=== PATIENT | female | born 1970 | race Caucasian/White ===

== ENCOUNTER 2020-09-23 16:22 | Inpatient (IN) | payer BC, SELFPAY ==
--- NOTE | ~2020-09-23 | CT_ITS ---
EXAMINATION: CT ABDOMEN AND PELVIS WITH CONTRAST CLINICAL INFORMATION: Right upper quadrant abdominal pain COMPARISON: None TECHNIQUE: Multidetector volumetric images were obtained from the superior aspect of the liver through the pubic symphysis following administration 85 mL of Omnipaque 350 intravenous contrast. Sagittal and coronal reformatted images were obtained on the technologist's workstation. Oral contrast: No This CT examination was performed using dose optimization techniques as appropriate, variously including the following: *Automated exposure control *Adjustment of mA and/or kV according to patient size (this includes techniques or standardized protocols for targeted exams where dose is matched to indication/reason for exam; i.e. extremities or head) *Use of iterative reconstruction technique DLP: 1046 mGy-cm FINDINGS: LUNG BASES: The visualized lung bases are unremarkable. LIVER, GALLBLADDER, AND BILIARY TREE: There is triangular low density consistent with focal fatty infiltration adjacent the fissure of the falciform ligament. No focal hepatic lesion or biliary ductal dilatation is present. The gallbladder is unremarkable with no evidence of radiopaque gallstones, gallbladder wall thickening, or obvious pericholecystic inflammatory changes. PANCREAS: Unremarkable. SPLEEN: Unremarkable. ADRENAL GLANDS: Unremarkable. KIDNEYS AND URETERS: The kidneys are normal in size, shape, and attenuation. No hydronephrosis, hydroureter, or calculi seen. No perinephric stranding. BLADDER: Unremarkable. GASTROINTESTINAL TRACT: The stomach and small bowel are nondilated. Normal appendix. There is moderate to severe segmental wall thickening of the transverse colon from the hepatic flexure to the splenic flexure. The left colon and sigmoid colon are collapsed with wall thickening commensurate with the degree of distention. ABDOMINAL WALL: No significant hernia is appreciated. LYMPH NODES: Normal. VASCULAR: Unremarkable. PELVIC VISCERA: Unremarkable. OSSEOUS STRUCTURES: Unremarkable. CT/CT abdomen pelvis w con IMPRESSION: Moderate to severe segmental wall thickening of the and entire transverse colon, from the hepatic flexure to the splenic flexure. The left colon and sigmoid colon are collapsed with wall thickening that is most likely attributable to underdistention. The appearance is consistent with a nonspecific colitis, presumably infectious or inflammatory. This would be an unusual location for ischemic colitis.
[2020-09-23 16:41] VITALS: BP 142/76; PULSE 90; RESP 16; TEMP 36.1; O2SAT 98; BMI 39.4
[2020-09-23 19:23] LABS: MANUAL DIFF FLAG NO
[2020-09-23 19:25] LABS: Basophils Absolute Auto 0.1 X10*3/uL (0.0-0.2); Basophils Percent Auto 0.6 % (0-2); Eosinophils Absolute Auto 0.2 X10*3/uL (0.0-0.4); Hematocrit 40.9 % (37-47); Hemoglobin 13.4 g/dl (12.0-16.0); Imm Gran Abs Auto 0.04 X10*3/uL (0.00-0.03); Imm Gran Pct Auto 0.5 % (0.0-0.4); Lymphocytes Absolute Auto 1.9 X10*3/uL (1.2-4.9); Lymphocytes Percent Auto 21.2 % (20-40); Mean Corpuscular HGB Conc 32.8 g/dl (31.0-35.0); Mean Corpuscular Hemoglobin 30.1 pg (27.0-33.0); Mean Corpuscular Volume 91.9 fL (80-98); Mean Platelet Volume 9.7 fL (9.4-12.3); Monocytes Absolute Auto 0.7 X10*3/uL (0.1-1.2); Monocytes Percent Auto 7.5 % (2-11); Neutrophils Percent Auto 68.2 % (45-73); Platelet Count 266 X10*3/uL (160-400); Red Blood Count 4.45 X10*6/uL (4.20-5.50); Red Cell Distribution Width 12.3 % (11.0-16.0); White Blood Count 8.8 X10*3/uL (4.8-10.8)
[2020-09-23 19:50] LABS: Alanine Aminotransferase 28 U/L (0-31); Alkaline Phosphatase 91 U/L (39-117); Anion Gap 14 (12-20); Aspartate Amino Transferase 16 U/L (5-31); Bilirubin Direct < 0.2 mg/dL (0.0-0.5); Bilirubin Total 0.4 mg/dL (0.0-1.0); Blood Urea Nitrogen 8 mg/dL (9-16); Calcium 9.1 mg/dL (8.4-10.2); Carbon Dioxide 25 mmol/L (22-29); Chloride 104 mmol/L (96-108); Creatinine Clr Calc Pharmacy 110.4; Estimated Glomerular Filt Rate > 60; Glucose Random 143 mg/dL (60-115); Lipase 28 U/L (8-78); Potassium 3.8 mmol/L (3.3-5.1); Sodium 139 mmol/L (135-145); Total Protein 7.1 g/dL (6.5-8.0)
[2020-09-23 21:25] LABS: Glucose Urine UA NEG (NEG); Leukocyte Esterase Urine NEG (NEG); Nitrite Urine NEG (NEG); Specific Gravity - Urine <= 1.005 (1.005-1.025); Urine Blood NEG (NEG); Urine Ketones NEG (NEG); Urine Protein NEG (NEG-TRACE)
--- NOTE | 2020-09-23 21:25 | PC.NURSE ---
Patient vomited while in CAT Scan and patient may have aspirated on his own vomit. Patient sounds very wet. Respiratory called to come evaluate the patient and his breathing. Abdomen more distended and MD made aware of developing. All providers made aware that patient's respirations were around 30-40's. No beds available in [facility]
[2020-09-23 21:26] LABS: UPreg QC Valid YES; Urine Pregnancy NEGATIVE (NEGATIVE)
[2020-09-23 21:27] LABS: Appearance Urine CLEAR; Color Urine YELLOW
--- NOTE | 2020-09-23 21:30 | ED.ABDPAIN ---
HPI - Abdominal Pain General Chief Complaint: Abdominal Pain Stated Complaint: Abdominal pain Time Seen by Provider: 09/23/20 21:26 Source: patient Mode of arrival: ambulatory Limitations: no limitations History of Present Illness HPI narrative: 50-year-old female with past medical history of HELLP syndrome, uterine fibroids, hysterectomy with salpingectomy, uterine fibroids and obesity presents with 10/10 right upper quadrant epigastric and left upper quadrant abdominal pain. States that this pain woke her up at 4:00 a.m. this morning. This pain is also associated with multiple episodes of diarrhea which she has been taking Pepto-Bismol for with poor effect. She did present to [facility] today and was in the waiting room for 6 hours, left to be evaluated here because the wait was too long. She does report a significant family history for colon cancer. She does not report any fevers or chills, chest pain or pressure, palpitations, shortness of breath, abdominal distention, inability of passed flatulence, edema, or any other concerning symptoms. MD elicited complaint: abdominal pain Pertinent past history: none Onset (ago): day(s) Pain Consistency: constant Location: epigastric, LUQ and RUQ Severity: severe Pain scale (0-10): 9 Quality: cramping and aching Exacerbating factors: eating, bowel movement and movement Relieving factors: nothing Associated symptoms: diarrhea and melena Treatments prior to arrival: other (Pepto-Bismol) Related Data Allergies Allergy/AdvReac Type Severity Reaction Status Date / Time No Known Allergies Allergy Verified 09/23/20 21:26 Review of Systems Review of Systems Constitutional: No Weight loss, No Fever, No Chills, No Night Sweats, No Fatigue, No Malaise ENT/Mouth: No Hearing loss, No Ear Pain, No Nasal Congestion, No Sinus Pain, No Hoarseness, No sore throat, No Rhinorrhea, No Swallowing Difficulty Eyes: No Eye Pain, No Swelling, No Redness, No Foreign Body, No Discharge, No Vision Changes Cardiovascular: No Chest Pain, No SOB, No Dyspnea on Exertion, No Orthopnea, No Edema, No Palpitations Respiratory: No Cough, No Sputum, No Wheezing, No Smoke Exposure, No Dyspnea Gastrointestinal: Positive Nausea, Positive Vomiting, positive Diarrhea, positive abdominal Pain, No Hematochezia, No Melena Genitourinary: no irregular bleeding, No Dysuria, No Urinary Frequency, No Hematuria, No Urinary Incontinence, No Urgency, No Flank Pain, No Urinary Flow Changes, No Hesitancy Musculoskeletal: No joint pain, No Myalgias, No Joint Swelling Skin: No Skin Lesions, No rash Neuro: No Weakness, No Numbness, No Paresthesias, No Loss of Consciousness, No Dizziness, No Headache Psych: No Anxiety/Panic, No Depression, No SI/HI/AH/VH, No Social Issues Heme/Lymph: No Bruising, No Bleeding,No Lymphadenopathy Endocrine: No Polyuria, No Polydipsia, No Temperature Intolerance Physical Exam Vital Signs: Vital Signs: Last Vital Signs Temp 97 F 09/23/20 16:41 Pulse 80 09/24/20 00:17 Resp 15 09/24/20 00:17 BP 118/75 09/24/20 00:17 Pulse Ox 97 09/24/20 00:17 Body Mass Index 39.4 Appearance: Alert. Oriented X3. Moderate distress. Head: Normal external exam. Normocephalic. Atraumatic. No Chavarria signs noted. No raccoon eyes noted Eyes: PERRLA. EOMI. Conjunctiva and sclera normal. Eyelids normal. ENT: TM's Normal. Pharynx normal. Uvula midline. Moist mucous membranes. No trismus noted. No drooling noted. No muffled voice noted. Neck: Normal inspection. Neck supple. No adenopathy. Thyroid Normal. No meningeal signs. No neck mass noted. CVS: Normal heart rate and rhythm. Heart sound normal. No murmurs noted. Pulses equal to all extremities. Respiratory: No respiratory distress. Painless inspiration. Breath sounds normal. No wheezes/rales/rhonchi noted. Chest nontender. No accessory muscle usage noted or decreased air movement noted. Abdomen: Soft, obese and diffusely tender throughout right upper epigastric and left upper quadrant, positive Garcia, negative psoas obturator and Rovsing. Bowel sounds normal in all 4 quadrants. No distention noted. No organomegaly noted. No visible injury noted. Genitourinary: Normal rectal tone, black stools noted on guaiac card Back: No CVA tenderness. Full range of motion noted. Skin: Skin warm and dry. Normal skin color. Normal skin turgor. No rashes/lesions/lacerations noted. Extremities: No lower extremity edema. Extremities exhibit normal range of motion. Extremities nontender. Neuro: cranial nerves 2-12 intact, no focal neural deficits, strength 5/5 to all extremities, No motor deficit. No sensory deficit. Course Course Course Narrative: 50-year-old female with past medical history of HELLP syndrome, obesity, uterine fibroids, hysterectomy with salpingectomy, significant family history for colon cancer presents with 10/10 abdominal pain that awoke her this morning at 4:00 a.m.. She has had several days of diarrhea prior to this severe pain. Plan of care is for CT scan of abdomen and pelvis with contrast. CBC Chem 7 unremarkable, urinalysis is negative, occult stool is negative. 1:[address] scan positive for moderate to severe colitis throughout the transverse colon. There is no indication of ischemia, discussion with hospitalist regarding plan of care. Plan is to admit, patient verbalized understanding of and agrees to plan. Has been NPO since 9:00 p.m.. Will order lactic, cultures, COVID swab and antibiotics. Patient is not septic. Consultations Consultation #1: evelin Time: 01:00 MDM - Abdominal Pain Differential Diagnosis Differential diagnosis: Likely abdominal pain, aortic dissection, acute appendicitis, calculus of kidney, diverticulitis, gastroenteritis, gastritis, mesenteric ischemia, ovarian cyst, pancreatitis and peptic ulcer disease Differential diagnosis narrative:: Colitis, cholecystitis Medical Records Attestation: I reviewed the patient's medical records. Lab Data Attestation: I reviewed the patient's lab results. Result diagrams: 09/23/20 19:12 09/23/20 19:12 Labs: Lab Results 09/23/20 09/23/20 09/23/20 Range/Units 19:12 19:12 20:51 WBC 8.8 (4.8-10.8) X10*3/uL RBC 4.45 (4.20-5.50) X10*6/uL Hgb 13.4 (12.0-16.0) g/dl Hct 40.9 (37-47) % MCV 91.9 (80-98) fL MCH 30.1 (27.0-33.0) pg MCHC 32.8 (31.0-35.0) g/dl RDW 12.3 (11.0-16.0) % Plt Count 266 (160-400) X10*3/uL MPV 9.7 (9.4-12.3) fL Immature Gran % (Auto) 0.5 H (0.0-0.4) % Neut % (Auto) 68.2 (45-73) % Lymph % (Auto) 21.2 (20-40) % [place] % (Auto) 7.5 (2-11) % Eos % (Auto) 2.0 (0-4) % Baso % (Auto) 0.6 (0-2) % Lymph # (Auto) 1.9 (1.2-4.9) X10*3/uL [place] # (Auto) 0.7 (0.1-1.2) X10*3/uL Eos # (Auto) 0.2 (0.0-0.4) X10*3/uL Baso # (Auto) 0.1 (0.0-0.2) X10*3/uL Abs Immat Gran (auto) 0.04 H (0.00-0.03) X10*3/uL Absolute Neuts (auto) 6.0 (2.0-8.3) X10*3/uL Absolute Nucleated RBC 0.000 (0.0-0.012) X10*3/uL Nucleated RBC % (auto) 0.0 (0.0-0.2) /100WBC Sodium 139 (135-145) mmol/L Potassium 3.8 (3.3-5.1) mmol/L Chloride 104 (96-108) mmol/L Carbon Dioxide 25 (22-29) mmol/L Anion Gap 14 (12-20) BUN 8 L (9-16) mg/dL Creatinine 0.83 (0.5-1.4) mg/dL Estim Creat Clear Calc 110.4 Estimated GFR > 60 Random Glucose 143 H (60-115) mg/dL Calcium 9.1 (8.4-10.2) mg/dL Total Bilirubin 0.4 (0.0-1.0) mg/dL Direct Bilirubin < 0.2 (0.0-0.5) mg/dL AST 16 (5-31) U/L ALT 28 (0-31) U/L Alkaline Phosphatase 91 (39-117) U/L Total Protein 7.1 (6.5-8.0) g/dL Albumin 4.0 (3.5-5.0) g/dL Lipase 28 (8-78) U/L Urine Color YELLOW Urine Appearance CLEAR Urine pH 7.0 (5.0-8.0) Ur Specific [place] <= 1.005 (1.005-1.025) Urine Protein NEG (NEG-TRACE) MG/DL Urine Glucose (UA) NEG (NEG) MG/DL Urine Ketones NEG (NEG) MG/DL Urine Blood NEG (NEG) Urine Nitrite NEG (NEG) Ur Leukocyte Esterase NEG (NEG) Urine Test (NEGATIVE) Stool Occult Blood (NEGATIVE) 09/23/20 09/23/20 Range/Units 20:51 21:48 WBC (4.8-10.8) X10*3/uL RBC (4.20-5.50) X10*6/uL Hgb (12.0-16.0) g/dl Hct (37-47) % MCV (80-98) fL MCH (27.0-33.0) pg MCHC (31.0-35.0) g/dl RDW (11.0-16.0) % Plt Count (160-400) X10*3/uL MPV (9.4-12.3) fL Immature Gran % (Auto) (0.0-0.4) % Neut % (Auto) (45-73) % Lymph % (Auto) (20-40) % [place] % (Auto) (2-11) % Eos % (Auto) (0-4) % Baso % (Auto) (0-2) % Lymph # (Auto) (1.2-4.9) X10*3/uL [place] # (Auto) (0.1-1.2) X10*3/uL Eos # (Auto) (0.0-0.4) X10*3/uL Baso # (Auto) (0.0-0.2) X10*3/uL Abs Immat Gran (auto) (0.00-0.03) X10*3/uL Absolute Neuts (auto) (2.0-8.3) X10*3/uL Absolute Nucleated RBC (0.0-0.012) X10*3/uL Nucleated RBC % (auto) (0.0-0.2) /100WBC Sodium (135-145) mmol/L Potassium (3.3-5.1) mmol/L Chloride (96-108) mmol/L Carbon Dioxide (22-29) mmol/L Anion Gap (12-20) BUN (9-16) mg/dL Creatinine (0.5-1.4) mg/dL Estim Creat Clear Calc Estimated GFR Random Glucose (60-115) mg/dL Calcium (8.4-10.2) mg/dL Total Bilirubin (0.0-1.0) mg/dL Direct Bilirubin (0.0-0.5) mg/dL AST (5-31) U/L ALT (0-31) U/L Alkaline Phosphatase (39-117) U/L Total Protein (6.5-8.0) g/dL Albumin (3.5-5.0) g/dL Lipase (8-78) U/L Urine Color Urine Appearance Urine pH (5.0-8.0) Ur Specific [place] (1.005-1.025) Urine Protein (NEG-TRACE) MG/DL Urine Glucose (UA) (NEG) MG/DL Urine Ketones (NEG) MG/DL Urine Blood (NEG) Urine Nitrite (NEG) Ur Leukocyte Esterase (NEG) Urine Test NEGATIVE (NEGATIVE) Stool Occult Blood NEGATIVE (NEGATIVE) Imaging Data CT scan abdomen pelvis: Attestation: I personally reviewed and interpreted this imaging study as follows: Radiologist's impression: EXAMINATION: CT ABDOMEN AND PELVIS WITH CONTRAST CLINICAL INFORMATION: Right upper quadrant abdominal pain COMPARISON: None TECHNIQUE: Multidetector volumetric images were obtained from the superior aspect of the liver through the pubic symphysis following administration 85 mL of Omnipaque 350 intravenous contrast. Sagittal and coronal reformatted images were obtained on the technologist's workstation. Oral contrast: No This CT examination was performed using dose optimization techniques as appropriate, variously including the following: *Automated exposure control *Adjustment of mA and/or kV according to patient size (this includes techniques or standardized protocols for targeted exams where dose is matched to indication/reason for exam; i.e. extremities or head) *Use of iterative reconstruction technique DLP: 1046 mGy-cm FINDINGS: LUNG BASES: The visualized lung bases are unremarkable. LIVER, GALLBLADDER, AND BILIARY TREE: There is triangular low density consistent with focal fatty infiltration adjacent the fissure of the falciform ligament. No focal hepatic lesion or biliary ductal dilatation is present. The gallbladder is unremarkable with no evidence of radiopaque gallstones, gallbladder wall thickening, or obvious pericholecystic inflammatory changes. PANCREAS: Unremarkable. SPLEEN: Unremarkable. ADRENAL GLANDS: Unremarkable. KIDNEYS AND URETERS: The kidneys are normal in size, shape, and attenuation. No hydronephrosis, hydroureter, or calculi seen. No perinephric stranding. BLADDER: Unremarkable. GASTROINTESTINAL TRACT: The stomach and small bowel are nondilated. Normal appendix. There is moderate to severe segmental wall thickening of the transverse colon from the hepatic flexure to the splenic flexure. The left colon and sigmoid colon are collapsed with wall thickening commensurate with the degree of distention. ABDOMINAL WALL: No significant hernia is appreciated. LYMPH NODES: Normal. VASCULAR: Unremarkable. PELVIC VISCERA: Unremarkable. OSSEOUS STRUCTURES: Unremarkable. CT/CT abdomen pelvis w con IMPRESSION: Moderate to severe segmental wall thickening of the and entire transverse colon, from the hepatic flexure to the splenic flexure. The left colon and sigmoid colon are collapsed with wall thickening that is most likely attributable to underdistention. The appearance is consistent with a nonspecific colitis, presumably infectious or inflammatory. This would be an unusual location for ischemic colitis. Critical Care Time Critical Care Time Critical Care Time: Yes Total Critical Care Time: 45 Attestation: I have personally provided critical care time exclusive of time spent on separately billable procedures. Time includes review of laboratory data, radiology results, discussion with consultants, and monitoring for potential decompensation. Interventions were performed as documented. Discharge Plan Discharge Clinical Impression: Colitis Patient Disposition: Admitted As Inpatient [facility] Social History Social History Smoking Status: Never smoker Use of substances other than those prescribed or required for medical reasons: No Advance Directives: No Advance Directives Information Provided: Yes
[2020-09-23 21:52] LABS: OBS Int Ctl Valid YES; OBS1 NEGATIVE (NEGATIVE)
[2020-09-23 22:00] VITALS: BP 129/78; PULSE 82; RESP 15; O2SAT 97
[2020-09-24] VITALS (9 sets, daily range): BP systolic 114–138; BP diastolic 62–79; PULSE 60–80; RESP 15–20; TEMP 36.4–36.7; O2SAT 93–98
--- NOTE | 2020-09-24 01:24 | PM.IMHP ---
History of Present Illness Date of Service: 09/24/20 Chief Complaint: Abdominal pain 50-year-old female with no significant past medical history presented to the hospital with a chief complaint of abdominal pain. Patient reports that symptoms started on last Wednesday initially had diarrhea, yesterday had regular bowel movement, denies any blood in the stool, abdominal pain is located diffusely but more on the right side, crampy in nature, 10/10 in intensity, denies any nausea vomiting. Denies any chest pain. Denies any numbness tingling. Denies any fever chills cough. Denies any diarrhea. 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 Denies eating frozen food a. ER course: For ER team patient noted to have diffuse abdominal tenderness; no guarding no rigidity. CT scan showed colitis. Admitted to the hospital for further management. Patient was given ceftriaxone and Flagyl in the ER. PMFSH Social History Smoking Status: Never smoker Use of substances other than those prescribed or required for medical reasons: No Advance Directives: No Advance Directives Information Provided: Yes Meds Allergies Allergy/AdvReac Type Severity Reaction Status Date / Time No Known Allergies Allergy Verified 09/23/20 21:26 Active Medications: Current Medications Generic Name Dose Route Start Last Admin Trade Name Freq PRN Reason Stop Dose Admin Heparin Sodium (Porcine) 5,000 unit 09/24/20 01:30 Heparin Sodium,Porcine 5,000 Unit/Ml Vial SUBCUT Q12H JONY Sodium Chloride 1,000 mls @ 999 mls/hr 09/24/20 01:15 Ns IVCONT 09/24/20 02:15 .Q1H1M JONY Ceftriaxone Sodium 1 gm/ 50 mls @ 100 mls/hr 09/24/20 01:05 Sodium Chloride IV 09/24/20 01:34 ONCE ONE Metronidazole 500 mg in 100 mls @ 100 mls/hr 09/24/20 01:05 Flagyl IV 09/24/20 02:04 ONCE ONE Dextrose/Sodium Chloride 1,000 mls @ 100 mls/hr 09/24/20 01:30 D51/2ns IVCONT .Q10H JONY Ceftriaxone Sodium 1 gm/ 50 mls @ 100 mls/hr 09/24/20 01:30 Sodium Chloride IV Q24H JONY Metronidazole 500 mg in 100 mls @ 100 mls/hr 09/24/20 01:30 Flagyl IV Q8H JONY Morphine Sulfate 1 mg 09/24/20 01:16 Morphine Sulfate 4 Mg/Ml Cartridge IVPUSH Q4H PRN Pain, Severe (Pain Scale 7-10) Pharmacy Consult 1 each 09/24/20 01:13 Consult Rx Perform Med Rec MISCELLANE ONCE PRN Consult order Sodium Chloride 3 ml 09/24/20 08:00 0.9 % Sodium Chloride Flush 3 Ml Syringe IVFLUSH QSHIFT [facility] Physical Exam Vital Signs and Narrative: Vital Signs: Last Vital Signs Temp 97 F 09/23/20 16:41 Pulse 80 09/24/20 00:17 Resp 15 09/24/20 00:17 BP 118/75 09/24/20 00:17 Pulse Ox 97 09/24/20 00:17 Body Mass Index 39.4 Gen: Appears be in no acute distress HEENT: NCAT, Moist mucosa. Pulmonary: Vesicular breath sounds, fair air entry CVS: Normal S1-S2 Abdomen: BS+, Soft, tender diffusely. No guarding no rigidity. Extremities: Warm well perfused Neuro: Alert and awake. Results Labs CBC and Chem 7: 09/23/20 19:12 09/23/20 19:12 Labs: Laboratory Results - last 24 hr 09/23/20 09/23/20 09/23/20 19:12 19:12 20:51 MCV 91.9 MCH 30.1 MCHC 32.8 RDW 12.3 Plt Count 266 MPV 9.7 Immature Gran % (Auto) 0.5 H Neut % (Auto) 68.2 Lymph % (Auto) 21.2 [place] % (Auto) 7.5 Eos % (Auto) 2.0 Baso % (Auto) 0.6 Lymph # (Auto) 1.9 [place] # (Auto) 0.7 Eos # (Auto) 0.2 Baso # (Auto) 0.1 Abs Immat Gran (auto) 0.04 H Absolute Neuts (auto) 6.0 Absolute Nucleated RBC 0.000 Nucleated RBC % (auto) 0.0 Anion Gap 14 Estim Creat Clear Calc 110.4 Estimated GFR > 60 Random Glucose 143 H Calcium 9.1 Total Bilirubin 0.4 Direct Bilirubin < 0.2 AST 16 ALT 28 Alkaline Phosphatase 91 Total Protein 7.1 Albumin 4.0 Lipase 28 Urine Color YELLOW Urine Appearance CLEAR Urine pH 7.0 Ur Specific [place] <= 1.005 Urine Protein NEG Urine Glucose (UA) NEG Urine Ketones NEG Urine Blood NEG Urine Nitrite NEG Ur Leukocyte Esterase NEG Urine Test Stool Occult Blood 09/23/20 09/23/20 20:51 21:48 MCV MCH MCHC RDW Plt Count MPV Immature Gran % (Auto) Neut % (Auto) Lymph % (Auto) [place] % (Auto) Eos % (Auto) Baso % (Auto) Lymph # (Auto) [place] # (Auto) Eos # (Auto) Baso # (Auto) Abs Immat Gran (auto) Absolute Neuts (auto) Absolute Nucleated RBC Nucleated RBC % (auto) Anion Gap Estim Creat Clear Calc Estimated GFR Random Glucose Calcium Total Bilirubin Direct Bilirubin AST ALT Alkaline Phosphatase Total Protein Albumin Lipase Urine Color Urine Appearance Urine pH Ur Specific [place] Urine Protein Urine Glucose (UA) Urine Ketones Urine Blood Urine Nitrite Ur Leukocyte Esterase Urine Test NEGATIVE Stool Occult Blood NEGATIVE Imaging Radiologist's Impressions: Impressions Abdomen/Pelvis CT 09/23/20 21:26 IMPRESSION: Moderate to severe segmental wall thickening of the and entire transverse colon, from the hepatic flexure to the splenic flexure. The left colon and sigmoid colon are collapsed with wall thickening that is most likely attributable to underdistention. The appearance is consistent with a nonspecific colitis, presumably infectious or inflammatory. This would be an unusual location for ischemic colitis. Assessment and Plan (1) Colitis: Status: Acute 50-year-old female with no significant past medical history presented to hospital with a chief complaint of abdominal pain. Noted to have colitis. Admitted for further management. Colitis: Will give the patient on empiric ceftriaxone and Flagyl. NPO IV fluids Pain control Will also consult General surgery. Recommended outpatient colonoscopy in 6-8 weeks. DVT prophylaxis: Subcu heparin Code status: Full code
[2020-09-24] MEDS: Ketorolac Tromethamine 30 MG/ML VIAL IVPUSH (01:44)
[2020-09-24] MEDS: cefTRIAXone sodium 1 GM in 0.9 % Sodium Chloride 50 ML IV ×2 (01:44→22:18)
[2020-09-24] MEDS: ondansetron HCL 4 MG/2 ML VIAL IVPUSH ×2 (01:45→19:07)
[2020-09-24] MEDS: metroNIDAZOLE/NS 500 MG/100 ML PIGGYBACK 100 MG IV ×3 (02:00→21:13)
[2020-09-24] MEDS: Morphine Sulfate 4 MG/ML CARTRIDGE IVPUSH (02:00)
[2020-09-24] MEDS: 0.9 % Sodium Chloride 1,000 ML 999 ML IVCONT (02:00)
[2020-09-24 02:14] LABS: Lactic Acid 1.2 mmol/L (0.5-2.0)
[2020-09-24 02:26] LABS: Influenza A PCR NEGATIVE (Negative); Influenza B PCR NEGATIVE (Negative); Resp Syncy Virus RNA Qual PCR NEGATIVE (Negative); SARS COV2 PCR INHOUSE NEGATIVE (Negative)
[2020-09-24] MEDS: Dextrose 5 % and 0.45 % NaCl 1,000 ML 100 ML IVCONT ×2 (03:11→19:07)
[2020-09-24] MEDS: Morphine Sulfate 2 MG/ML CARTRIDGE 1 MG IVPUSH ×2 (06:16→10:08)
[2020-09-24 06:30] LABS: MANUAL DIFF FLAG NO
[2020-09-24 06:40] LABS: Basophils Percent Auto 0.6 % (0-2); Eosinophils Absolute Auto 0.1 X10*3/uL (0.0-0.4); Eosinophils Percent Auto 1.9 % (0-4); Hematocrit 38.9 % (37-47); Hemoglobin 12.7 g/dl (12.0-16.0); Imm Gran Abs Auto 0.03 X10*3/uL (0.00-0.03); Imm Gran Pct Auto 0.4 % (0.0-0.4); Lymphocytes Absolute Auto 1.4 X10*3/uL (1.2-4.9); Lymphocytes Percent Auto 21.3 % (20-40); Mean Corpuscular HGB Conc 32.6 g/dl (31.0-35.0); Mean Corpuscular Hemoglobin 29.9 pg (27.0-33.0); Mean Corpuscular Volume 91.5 fL (80-98); Mean Platelet Volume 9.7 fL (9.4-12.3); Monocytes Absolute Auto 0.6 X10*3/uL (0.1-1.2); Monocytes Percent Auto 8.6 % (2-11); Neutrophils Absolute Auto 4.6 X10*3/uL (2.0-8.3); Neutrophils Percent Auto 67.2 % (45-73); Platelet Count 222 X10*3/uL (160-400); Red Blood Count 4.25 X10*6/uL (4.20-5.50); Red Cell Distribution Width 12.3 % (11.0-16.0); White Blood Count 6.8 X10*3/uL (4.8-10.8)
[2020-09-24 07:26] LABS: Anion Gap 13 (12-20); Blood Urea Nitrogen 6 mg/dL (9-16); Carbon Dioxide 21 mmol/L (22-29); Chloride 108 mmol/L (96-108); Creatinine Clr Calc Pharmacy 130.9; Estimated Glomerular Filt Rate > 60; Glucose Random 107 mg/dL (60-115); Potassium 3.9 mmol/L (3.3-5.1); Sodium 138 mmol/L (135-145)
[2020-09-24 07:46] LABS: Calcium 8.1 mg/dL (8.4-10.2)
--- NOTE | 2020-09-24 08:07 | PC.NURSE ---
called to give report RN will call back
--- NOTE | 2020-09-24 09:27 | PC.NURSE ---
second attempt to give report, RN will call back
--- NOTE | 2020-09-24 11:16 | PC.NURSE ---
report given [facility] will transport to floor
--- NOTE | 2020-09-24 12:37 | MHC.CM.PN ---
met with pt who is independent cm intervention is not indicated,pt has own transportation home
--- NOTE | 2020-09-24 13:16 | P.CONGS_ITS ---
History of Present Illness Consult details Consult date: 09/24/20 Requesting physician: Robin Ferreira Narrative: Naomi Martines a 50-year-old female patient admitted to the hospitalist service with complaints of abdominal pain in the upper abdomen associated with diarrhea and chills. Her symptoms started Wednesday. She reports eating at the [employer] restaurant on , having a meal of steak tips and coleslaw. The next day she began to have abdominal pain and diarrhea on several occasions. This persisted throughout the weekend in the abdominal pain in creased as well. Today however she reports having a solid bowel movement but continues to have the pain located mainly in the epigastrium and bandlike across the upper abdomen. She denies nausea or vomiting. Her family history is significant for her mother having colon cancer in her 50s and her brother developing rectal cancer also in his 50s. Her sister has a history of Crohn's disease. She has previously undergone a colonoscopy but is due for a colonoscopy later this year. She denies bleeding per rectum and denies a previous episode of similar symptoms. Review of Systems Review of Systems: Yes all other systems are reviewed and are negative Constitutional: Constitutional: Reports chills, Denies fever(s) and Denies night sweats Cardiovascular: Cardiovascular: Denies chest pain, Reports Epigastric Pain, Denies irregular heart rhythm, Denies palpitations and Denies dyspnea Respiratory: Respiratory: Denies chest congestion, Denies cough, Denies excessive phlegm production, Denies dyspnea and Denies wheezing Gastrointestinal: Gastrointestinal: Reports as per HPI, Reports abdominal pain, Denies hematochezia, Reports diarrhea, Denies nausea, Denies vomiting and Denies hematemesis Genitourinary: Genitourinary: Reports no additional female genitourinary complaints Musculoskeletal: Musculoskeletal: Reports no additional musculoskeletal complaints Neurologic: Reports system reviewed and no additional complaints, except as documented Endocrine: Endocrine: Denies palpitations Allergic/Immunologic: Allergic/Immunologic: Denies wheezing PMFSH Social History Social History Smoking Status: Never smoker Use of substances other than those prescribed or required for medical reasons: No Advance Directives: No Advance Directives Information Provided: Yes service: No Meds Allergies Allergy/AdvReac Type Severity Reaction Status Date / Time cephalexin [From Keflex] Allergy Rash Verified 09/24/20 03:23 sulfamethoxazole Allergy Rash Verified 09/24/20 03:24 [From Bactrim] trimethoprim [From Bactrim] Allergy Rash Verified 09/24/20 03:24 Active Medications: Current Medications Generic Name Dose Route Start Last Admin Trade Name Freq PRN Reason Stop Dose Admin Heparin Sodium (Porcine) 5,000 unit 09/24/20 06:00 09/24/20 12:27 Heparin Sodium,Porcine 5,000 Unit/Ml Vial SUBCUT Not Given Q12H JONY Dextrose/Sodium Chloride 1,000 mls @ 100 mls/hr 09/24/20 01:30 09/24/20 12:55 D51/2ns IVCONT Not Given .Q10H JONY Ceftriaxone Sodium 1 gm/ 50 mls @ 100 mls/hr 09/24/20 22:00 Sodium Chloride IV Q24H JONY Metronidazole 500 mg in 100 mls @ 100 mls/hr 09/24/20 13:00 Flagyl IV Q8H JONY Morphine Sulfate 1 mg 09/24/20 01:16 09/24/20 10:08 Morphine Sulfate 2 Mg/Ml Cartridge IVPUSH 1 mg Q4H PRN Administration Pain, Severe (Pain Scale 7-10) Pharmacy Consult 1 each 09/24/20 01:13 Consult Rx Perform Med Rec MISCELLANE ONCE PRN Consult order Sodium Chloride 3 ml 09/24/20 08:00 09/24/20 09:28 0.9 % Sodium Chloride Flush 3 Ml Syringe IVFLUSH Not Given QSHIFT [facility] Home Medications Medication Instructions Recorded Confirmed Last Taken Type cyclobenzaprine 1 tab PO DAILY 09/24/20 09/24/20 Unknown History loratadine 10 mg PO DAILY 09/24/20 09/24/20 Unknown History Physical Exam Vital Signs: Vital Signs: Last Vital Signs Temp 98.0 F 09/24/20 11:46 Pulse 71 09/24/20 11:46 Resp 18 09/24/20 11:46 BP 138/79 09/24/20 11:46 Pulse Ox 97 09/24/20 11:46 Body Mass Index 39.4 Const: General: cooperative, healthy appearing, comfortable and no acute distress Nutritional Appearance: obese Orientation/consciousness: patient oriented x3 Limitations: no limitations Eyes: Sclerae: sclerae normal EOM: EOMs intact bilaterally Resp: Effort & Inspection: normal respiratory effort, no stridor and not tachypneic Auscultation: no wheezes Cardio: Jugular venous distension: no JVD GI: Inspection: Yes normal to inspection and No Abdominal wall edema Palpation (GI): Soft to palpation and Tenderness to palpation present (GI) in the epigastrum, in the LUQ and in the RUQ Percussion: Yes normal to percussion Auscultation: normal bowel sounds Rectal Exam - Female: deferred Skin: General skin exam: no rashes or lesions noted and dry skin Neuro: General: patient oriented x3 Extrem: General: Yes no clubbing, cyanosis or edema Results Labs Result diagrams: 09/24/20 06:26 09/24/20 06:26 Labs: Abnormal lab results 09/23/20 09/23/20 09/24/20 Range/Units 19:12 19:12 06:26 Immature Gran % (Auto) 0.5 H (0.0-0.4) % Abs Immat Gran (auto) 0.04 H (0.00-0.03) X10*3/uL Carbon Dioxide 21 L (22-29) mmol/L BUN 8 L 6 L (9-16) mg/dL Random Glucose 143 H (60-115) mg/dL Calcium 8.1 L D (8.4-10.2) mg/dL Short CBC 09/23/20 09/24/20 Range/Units 19:12 06:26 WBC 8.8 6.8 (4.8-10.8) X10*3/uL Hgb 13.4 12.7 (12.0-16.0) g/dl Hct 40.9 38.9 (37-47) % Plt Count 266 222 (160-400) X10*3/uL BMP 09/23/20 09/24/20 19:12 06:26 Sodium 139 138 Potassium 3.8 3.9 Chloride 104 108 Carbon Dioxide 25 21 L BUN 8 L 6 L Creatinine 0.83 0.70 Calcium 9.1 8.1 L D Liver Function 09/23/20 Range/Units 19:12 Total Bilirubin 0.4 (0.0-1.0) mg/dL Direct Bilirubin < 0.2 (0.0-0.5) mg/dL AST 16 (5-31) U/L ALT 28 (0-31) U/L Alkaline Phosphatase 91 (39-117) U/L Albumin 4.0 (3.5-5.0) g/dL Urine 09/23/20 09/23/20 Range/Units 20:51 20:51 Urine Color YELLOW Urine Appearance CLEAR Urine pH 7.0 (5.0-8.0) Ur Specific [place] <= 1.005 (1.005-1.025) Urine Protein NEG (NEG-TRACE) MG/DL Urine Glucose (UA) NEG (NEG) MG/DL Urine Test NEGATIVE (NEGATIVE) All other labs normal. Assessment and Plan (1) Colitis: Status: Acute 50-year-old female patient presenting with a 5 day history of abdominal pain in the epigastrium and upper quadrants associated with diarrhea on and chills. Patient feels the diarrhea is actually improving but she continues to have the abdominal pain. Review of the CT does show an area of the transverse colon which is thickened compared to the proximal and distal colon. I would agree this is an unusual location for an ischemic colitis. Other possibilities include infectious either from a food-borne pathogen or C diff colitis; neoplasm although she has previously undergone colonoscopies; inflammatory bowel disease namely Crohn's disease given the family history. Her WBC remains normal and overall her symptoms are slowly improving which would be more suggestive of a food-borne pathogen. In either case no surgical intervention is required at this time.
[2020-09-24] MEDS: oxyCODONE HCl Immed Release 5 MG TABLET PO ×2 (14:24→21:19)
[2020-09-24] MEDS: 0.9 % Sodium Chloride Flush 3 ML SYRINGE IVFLUSH (15:40)
[2020-09-25 03:25] VITALS: BP 109/64; PULSE 79; RESP 15; TEMP 36.7; O2SAT 93
[2020-09-25] MEDS: metroNIDAZOLE/NS 500 MG/100 ML PIGGYBACK 100 MG IV ×3 (06:03→21:11)
[2020-09-25 07:25] VITALS: BP 118/68; PULSE 83; RESP 18; TEMP 36.4; O2SAT 96
[2020-09-25] MEDS: Dextrose 5 % and 0.45 % NaCl 1,000 ML 100 ML IVCONT ×2 (07:49→20:00)
[2020-09-25] MEDS: 0.9 % Sodium Chloride Flush 3 ML SYRINGE IVFLUSH ×2 (07:50→16:46)
[2020-09-25] MEDS: Acetaminophen 325 MG TABLET 650 MG PO (09:03)
[2020-09-25] MEDS: oxyCODONE HCl Immed Release 5 MG TABLET PO ×2 (10:58→21:14)
[2020-09-25] MEDS: ondansetron HCL 4 MG/2 ML VIAL IVPUSH (10:59)
[2020-09-25 11:18] VITALS: BP 118/72; PULSE 72; RESP 18; TEMP 36.5; O2SAT 95
--- NOTE | 2020-09-25 13:49 | HO.PM.IMPN ---
Subjective Subjective Date of Service: 09/25/20 Interval History: Patient complaining of persistent mid abdominal pain radiating from the right side of the abdomen towards left, pain aggravated with food, no fever chills no other acute issues overnight General no headache, no dizziness, no fever chills. CVS no chest pain, no palpitation. Respiratory no cough, no sob Gastrointestinal no nausea, no vomiting, mid abdominal pain, no diarrhea Physical Exam Vital Signs: Vital Signs: Last Vital Signs Temp 97.7 F 09/25/20 11:18 Pulse 72 09/25/20 11:18 Resp 18 09/25/20 11:18 BP 118/72 09/25/20 11:18 Pulse Ox 95 09/25/20 11:18 Body Mass Index 39.4 General no acute distress. Neck is supple no JVD. CVS regular rate rhythm, Respiratory lungs clear to auscultation, no respiratory distress, no wheeze, no rhonchi. Gastrointestinal abdomen soft, mild mid abdominal discomfort to deep palpation, bowel sounds audible, no guarding , no rigidity. Extremities no clubbing cyanosis or edema. Neuro nonfocal , speech clear. Skin no rash Objective Data Current Medications Generic Name Dose Route Start Last Admin Trade Name Freq PRN Reason Stop Dose Admin Acetaminophen 650 mg 09/25/20 07:53 09/25/20 09:03 Acetaminophen 325 Mg Tablet PO 650 mg Q6H PRN Administration Pain, Mild (Pain Scale 1-3) Heparin Sodium (Porcine) 5,000 unit 09/24/20 06:00 09/25/20 06:10 Heparin Sodium,Porcine 5,000 Unit/Ml Vial SUBCUT Not Given Q12H JONY Dextrose/Sodium Chloride 1,000 mls @ 100 mls/hr 09/24/20 01:30 09/25/20 07:49 D51/2ns IVCONT 100 mls/hr .Q10H JONY Administration Ceftriaxone Sodium 1 gm/ 50 mls @ 100 mls/hr 09/24/20 22:00 09/24/20 23:07 Sodium Chloride IV Infused Q24H JONY Infusion Metronidazole 500 mg in 100 mls @ 100 mls/hr 09/24/20 13:00 09/25/20 13:42 Flagyl IV 100 mls/hr Q8H JONY Administration Morphine Sulfate 4 mg 09/24/20 13:59 Morphine Sulfate 2 Mg/Ml Cartridge IVPUSH Q4H PRN Pain, Severe (Pain Scale 7-10) Ondansetron HCl 4 mg 09/24/20 18:50 09/25/20 10:59 Ondansetron Hcl 4 Mg/2 Ml Vial IVPUSH 4 mg Q8H PRN Administration Nausea Oxycodone HCl 5 mg 09/24/20 13:59 09/25/20 10:58 Oxycodone Hcl Immed Release 5 Mg Tablet PO 5 mg Q6H PRN Administration Pain, Moderate (Pain Scale 4-6 Pharmacy Consult 1 each 09/24/20 01:13 Consult Rx Perform Med Rec MISCELLANE ONCE PRN Consult order Sodium Chloride 3 ml 09/24/20 08:00 09/25/20 07:50 0.9 % Sodium Chloride Flush 3 Ml Syringe IVFLUSH 3 ml QSHIFT JONY Administration Labs CBC & Chem 7: 09/24/20 06:26 09/24/20 06:26 Microbiology Microbiology Results: Microbiology 09/24/20 01:41 Blood - Venous Blood Culture - Preliminary No growth after 24 hours. 09/24/20 01:40 Blood - Venous Blood Culture - Preliminary No growth after 24 hours. Assessment and Plan (1) Colitis: Status: Acute Assessment and Plan: 50-year-old female with no significant past medical history presented to hospital with a chief complaint of abdominal pain. Noted to have colitis. Admitted for further management. Acute Colitis: Persistent abdominal pain, worse with eating continue clear liquid diet , IV antibiotic day 2, IV fluids pain medication with oxycodone and IV morphine Likely colitis due to of food poisoning, less likely ischemic colitis or inflammatory bowel disease, patient seen by General surgery no further intervention planned they agreed with above treatment Will gradually advanced diet. Patient concern about constipation will add stool softener once able to tolerate diet. DVT prophylaxis: Subcu heparin Code status: Full code
--- NOTE | 2020-09-25 13:59 | MHC.CM.PN ---
per multi dis rounds no dc date expected at this time
[2020-09-25 15:24] VITALS: BP 121/72; PULSE 61; RESP 18; TEMP 36.7; O2SAT 98
[2020-09-25] MEDS: Heparin Sodium,Porcine 5,000 UNIT/ML VIAL 5000 UNIT SUBCUT (16:46)
[2020-09-25] MEDS: Morphine Sulfate 2 MG/ML CARTRIDGE 4 MG IVPUSH (16:46)
[2020-09-25 19:40] VITALS: BP 133/80; PULSE 64; RESP 18; TEMP 36.8; O2SAT 97
[2020-09-25] MEDS: cefTRIAXone sodium 1 GM in 0.9 % Sodium Chloride 50 ML IV (21:11)
[2020-09-26] VITALS (7 sets, daily range): BP systolic 107–135; BP diastolic 56–77; PULSE 62–82; RESP 18; TEMP 36.7–37.1; O2SAT 93–97
[2020-09-26] MEDS: Dextrose 5 % and 0.45 % NaCl 1,000 ML 100 ML IVCONT ×2 (04:38→14:02)
[2020-09-26] MEDS: metroNIDAZOLE/NS 500 MG/100 ML PIGGYBACK 100 MG IV ×3 (04:40→20:53)
[2020-09-26] MEDS: Heparin Sodium,Porcine 5,000 UNIT/ML VIAL 5000 UNIT SUBCUT ×2 (05:40→16:37)
[2020-09-26] MEDS: ondansetron HCL 4 MG/2 ML VIAL IVPUSH ×2 (06:13→20:52)
[2020-09-26] MEDS: oxyCODONE HCl Immed Release 5 MG TABLET PO ×3 (08:52→22:04)
[2020-09-26] MEDS: 0.9 % Sodium Chloride Flush 3 ML SYRINGE IVFLUSH ×3 (08:54→23:35)
--- NOTE | 2020-09-26 14:33 | HO.PM.IMPN ---
Subjective Subjective Date of Service: 09/26/20 Interval History: Patient had nausea this morning but improved with ambulation and antiemetics, is still complaining of mid abdominal pain less intense, passing flatus, no bowel movement, no other acute issues overnight. ROS General no headache, no dizziness, no fever chills. CVS no chest pain, no palpitation. Respiratory no cough, no sob Gastrointestinal nausea, mid abdominal pain, no diarrhea Physical Exam Vital Signs: Vital Signs: Last Vital Signs Temp 98.0 F 09/26/20 11:28 Pulse 62 09/26/20 11:28 Resp 18 09/26/20 11:28 BP 131/77 09/26/20 11:28 Pulse Ox 95 09/26/20 11:28 Body Mass Index 39.4 General no acute distress. Neck is supple no JVD. CVS regular rate rhythm, Respiratory lungs clear to auscultation, no respiratory distress, no wheeze, no rhonchi. Gastrointestinal abdomen soft, mild mid abdominal discomfort to deep palpation no worsening since yesterday,bowel sounds audible, no guarding , no rigidity. Extremities no clubbing cyanosis or edema. Neuro nonfocal , speech clear. Skin no rash Objective Data Current Medications Generic Name Dose Route Start Last Admin Trade Name Freq PRN Reason Stop Dose Admin Acetaminophen 650 mg 09/25/20 07:53 09/25/20 09:03 Acetaminophen 325 Mg Tablet PO 650 mg Q6H PRN Administration Pain, Mild (Pain Scale 1-3) Docusate Sodium 100 mg 09/26/20 11:32 Docusate Sodium 100 Mg Capsule PO BID PRN constipation Heparin Sodium (Porcine) 5,000 unit 09/24/20 06:00 09/26/20 05:40 Heparin Sodium,Porcine 5,000 Unit/Ml Vial SUBCUT 5,000 unit Q12H JONY Administration Dextrose/Sodium Chloride 1,000 mls @ 100 mls/hr 09/24/20 01:30 09/26/20 14:02 D51/2ns IVCONT 100 mls/hr .Q10H JONY Administration Ceftriaxone Sodium 1 gm/ 50 mls @ 100 mls/hr 09/24/20 22:00 09/25/20 22:12 Sodium Chloride IV Infused Q24H JONY Infusion Metronidazole 500 mg in 100 mls @ 100 mls/hr 09/24/20 13:00 09/26/20 14:29 Flagyl IV 100 mls/hr Q8H JONY Administration Morphine Sulfate 4 mg 09/24/20 13:59 09/25/20 16:46 Morphine Sulfate 2 Mg/Ml Cartridge IVPUSH 4 mg Q4H PRN Administration Pain, Severe (Pain Scale 7-10) Ondansetron HCl 4 mg 09/24/20 18:50 09/26/20 06:13 Ondansetron Hcl 4 Mg/2 Ml Vial IVPUSH 4 mg Q8H PRN Administration Nausea Oxycodone HCl 5 mg 09/24/20 13:59 09/26/20 08:52 Oxycodone Hcl Immed Release 5 Mg Tablet PO 5 mg Q6H PRN Administration Pain, Moderate (Pain Scale 4-6 Pharmacy Consult 1 each 09/24/20 01:13 Consult Rx Perform Med Rec MISCELLANE ONCE PRN Consult order Sodium Chloride 3 ml 09/24/20 08:00 09/26/20 08:54 0.9 % Sodium Chloride Flush 3 Ml Syringe IVFLUSH 3 ml QSHIFT JONY Administration Labs CBC & Chem 7: 09/24/20 06:26 09/24/20 06:26 Microbiology Microbiology Results: Microbiology 09/24/20 01:41 Blood - Venous Blood Culture - Preliminary No growth after 48 hours. 09/24/20 01:40 Blood - Venous Blood Culture - Preliminary No growth after 48 hours. Assessment and Plan (1) Colitis: Status: Acute Assessment and Plan: 50-year-old female with no significant past medical history presented to hospital with a chief complaint of abdominal pain. Noted to have colitis. Admitted for further management. Acute Colitis: Persistent abdominal pain but less severe, mild nausea, passing flatus, no diarrhea, will advance diet to full liquid, continue IV antibiotic day 3, continue IV fluids pain medication with oxycodone DC IV morphine. Likely colitis due to of food poisoning, less likely ischemic colitis or inflammatory bowel disease, patient seen by General surgery no further intervention planned they agreed with above treatment gradually advanced diet, add stool softener. DVT prophylaxis: Subcu heparin Code status: Full code
[2020-09-26] MEDS: cefTRIAXone sodium 1 GM in 0.9 % Sodium Chloride 50 ML IV (22:10)
[2020-09-27 03:31] VITALS: BP 130/70; PULSE 80; RESP 18; TEMP 36.6; O2SAT 96
[2020-09-27] MEDS: metroNIDAZOLE/NS 500 MG/100 ML PIGGYBACK 100 MG IV (05:58)
[2020-09-27] MEDS: 0.9 % Sodium Chloride Flush 3 ML SYRINGE IVFLUSH (07:39)
[2020-09-27 08:00] VITALS: BP 125/61; PULSE 72; RESP 18; TEMP 37.5
[2020-09-27 10:18] LABS: Anion Gap 12 (12-20); Blood Urea Nitrogen 4 mg/dL (9-16); Calcium 8.6 mg/dL (8.4-10.2); Carbon Dioxide 26 mmol/L (22-29); Chloride 104 mmol/L (96-108); Creatinine Clr Calc Pharmacy 110.4; Estimated Glomerular Filt Rate > 60; Glucose Random 131 mg/dL (60-115); Potassium 4.3 mmol/L (3.3-5.1); Sodium 138 mmol/L (135-145)
[2020-09-27 11:14] VITALS: BP 126/75; PULSE 63; RESP 18; TEMP 36.4; O2SAT 96
--- NOTE | 2020-09-27 11:32 | MHC.CM.PN ---
pt to be dcd today per rounds plan is home no servceis
--- NOTE | 2020-09-27 13:41 | P.DS_ITS ---
DS: Providers Provider Date of Service: 09/27/20 Date of admission: 09/24/20 01:16 Primary care physician: Arash Velásquez DO Consults: 09/24/20 02:51 Consult to General Surgery Routine Consulting Provider: Lauren Abebe Reason for consultation: Colitis DS: Diagnosis Discharge Diagnosis (1) Colitis: Status: Acute DS: Medications Discharge Medications Home Medications: Home Medications Medication Instructions Recorded Confirmed cyclobenzaprine 1 tab PO DAILY 09/24/20 09/24/20 loratadine 10 mg PO DAILY 09/24/20 09/24/20 Previous Rx's Medication Instructions Recorded cefuroxime axetil 500 mg PO Q12H #8 tab 09/27/20 metronidazole 500 mg PO Q12H #8 tab 09/27/20 ondansetron 4 mg PO Q6H PRN #14 tab 09/27/20 DS: Summary Hospital Course Hospital Course: Chief Complaint: Abdominal pain 50-year-old female with no significant past medical history presented to the hospital with a chief complaint of abdominal pain. Patient reports that symptoms started on last Wednesday initially had diarrhea, yesterday had regular bowel movement, denies any blood in the stool, abdominal pain is located diffusely but more on the right side, crampy in nature, 10/10 in intensity, denies any nausea vomiting. Denies any chest pain. Denies any numbness tingling. Denies any fever chills cough. Denies any diarrhea. Review of all other systems is negative except mentioned above Hospital course 50-year-old female with no significant past medical history presented to hospital with a chief complaint of abdominal pain. Noted to have colitis. Admitted for further management. Acute Colitis: Patient abdominal pain improved she continued to have mild nausea and had episodes of to loose stool, since then feeling better tolerating diet, no fever chills electrolytes and CBC are unremarkable likely colitis due to food poisoning, less likely ischemic colitis patient seen by General surgery no further intervention planned, will discharge patient home on by mouth Flagyl and Ceftin for 4 more days to finish a 7 day course of antibiotic, patient has been recommended to take low residue diet and return to check with any worsening signs symptoms of nausea vomiting or abdominal pain. Small supply of Zofran 4mg given. Obesity BMI 39 exercise, low-calorie diet. Time Spent with Patient Time attestation: Total time spent providing and/or coordinating discharge ser vices: Discharge coordination time: Greater than 30 minutes Physical Exam Vital Signs: Vital Signs: Last Vital Signs Temp 97.5 F 09/27/20 11:14 Pulse 63 09/27/20 11:14 Resp 18 09/27/20 11:14 BP 126/75 09/27/20 11:14 Pulse Ox 96 09/27/20 11:14 Body Mass Index 39.4 General no acute distress. Neck is supple no JVD. CVS regular rate rhythm, Respiratory lungs clear to auscultation, no respiratory distress, no wheeze, no rhonchi. Gastrointestinal abdomen soft, nontender,bowel sounds audible, no guarding , no rigidity. Extremities no clubbing cyanosis or edema. Neuro nonfocal , speech clear. Skin no rash DS: Data Data Completed and Pending Labs on day of discharge: Laboratory Results - last 24 hr 09/27/20 09:39 Sodium 138 Potassium 4.3 Chloride 104 Carbon Dioxide 26 Anion Gap 12 BUN 4 L Creatinine 0.83 Estim Creat Clear Calc 110.4 Estimated GFR > 60 Random Glucose 131 H Calcium 8.6 D Preliminary micro results at discharge 09/24/20 01:41 Blood Culture - Preliminary Blood - Venous No growth after 48 hours. 09/24/20 01:40 Blood Culture - Preliminary Blood - Venous No growth after 48 hours. Discharge Plan Discharge Patient Disposition: Home, Self-Care Referrals: Arash Velásquez DO [Primary Care Provider] - Discharge Medications: New metronidazole 500 mg Tablet 500 mg PO Q12H Qty: 8 RF: 0 cefuroxime axetil 500 mg tablet 500 mg PO Q12H Qty: 8 RF: 0 ondansetron 4 mg tablet,disintegrating 4 mg PO Q6H PRN (Reason: nausea and vomiting) Qty: 14 RF: 0 Continued cyclobenzaprine 10 mg tablet 1 tab PO DAILY RF: 0 loratadine 10 mg Tablet 10 mg PO DAILY RF: 0 Discharge Orders: Discharge Order (Routine); Ordered 09/27/20 Ordered By: Natasha Barahona Diet: other Activity on Discharge: As tolerated Stand Alone Forms: Patient Portal Discharge page, Work/School Release Care Plan Goals: As above Health Concerns: Acute colitis take low residue diet, finish course of antibiotic as prescribed, return to check with any recurrent symptoms of nausea, vomiting, abdominal pain or diarrhea. Plan of Treatment: Outpatient follow-up with primary care physician in 1 week
== END 2020-09-27 15:31 | disposition home or self-care (01) | DRG 249 ==
LOC: HO.ED 09-24 03:23 → HO.EDOVER 09-24 05:55 → HO.IMC 09-24 07:11
PROVIDERS: Nurse Practitioner Family; Admitting Provider Hospitalist; Emergency Provider Emergency Medicine Emergency Medical Services; PCP Family Medicine; Visit Provider Hospitalist
DX: K52.9 Noninfective gastroenteritis and colitis, unspecified (principal); E66.9 Obesity, unspecified; Z20.822 Contact with and (suspected) exposure to COVID-19; Z88.2 Allergy status to sulfonamides; Z68.39 Body mass index [BMI] 39.0-39.9, adult
CPT/HCPCS: 0241U; 36415; 74177; 80048; 80053; 80076; 81003; 81025; 82272; 83605; 83690; 85025; 87040; 96365; 96368; 96375; 99285; 99291; J0696; J1885; J2270; J2405; Q9967

== ENCOUNTER 2020-10-08 15:23 | Emergency (ER) | payer BC, SELFPAY ==
--- NOTE | ~2020-10-08 | CT_ITS ---
EXAMINATION: CT ABDOMEN AND PELVIS WITH CONTRAST CLINICAL INFORMATION: Diffuse abdominal pain with history of recent colitis COMPARISON: CT abdomen pelvis 09/23/2020 TECHNIQUE: Multidetector volumetric images were obtained from the superior aspect of the liver through the pubic symphysis following administration 85 mL of Omnipaque 350 intravenous contrast. Sagittal and coronal reformatted images were obtained on the technologist's workstation. Oral contrast: No This CT examination was performed using dose optimization techniques as appropriate, variously including the following: *Automated exposure control *Adjustment of mA and/or kV according to patient size (this includes techniques or standardized protocols for targeted exams where dose is matched to indication/reason for exam; i.e. extremities or head) *Use of iterative reconstruction technique DLP: 971 mGy-cm FINDINGS: LUNG BASES: The visualized lung bases are unremarkable. Bibasilar atelectasis is present. LIVER, GALLBLADDER, AND BILIARY TREE: The liver is normal in size, shape, and attenuation. No focal hepatic lesion or biliary ductal dilatation is present. The gallbladder is unremarkable with no evidence of radiopaque gallstones, gallbladder wall thickening, or obvious pericholecystic inflammatory changes. PANCREAS: Unremarkable. SPLEEN: Unremarkable. ADRENAL GLANDS: Unremarkable. KIDNEYS AND URETERS: The kidneys are normal in size, shape, and attenuation. No hydronephrosis, hydroureter, or calculi seen. No perinephric stranding. BLADDER: Unremarkable. GASTROINTESTINAL TRACT: Since the prior study which demonstrated moderate to severe segmental wall thickening of the transverse colon there has been some improvement in appearances of this. However, splenic flexure and the descending colon including a portion of the sigmoid now appear more thickened than previously noted possibly suggesting colitis in this region as well. No pneumatosis is seen. No free air is seen. The appendix is not visualized but there is no evidence of appendicitis. ABDOMINAL WALL: No significant hernia is appreciated. LYMPH NODES: No retroperitoneal lymphadenopathy. VASCULAR: The abdominal aorta appears normal. The celiac SMA and SHEELA are all widely patent and well seen. Single renal arteries are present bilaterally which are patent. The portal venous system appears normal the IVC renal veins and hepatic veins all appear normal. PELVIC VISCERA: Surgically removed OSSEOUS STRUCTURES: Degenerative changes at L5-S1 are present. CT/CT abdomen pelvis w con IMPRESSION: Although the transverse colon appears less thickened than previously seen, there appears to be some mucosal thickening now involving the hepatic flexure descending colon and a portion of the sigmoid. Findings remain suggestive of colitis.
[2020-10-08 16:36] VITALS: BP 130/80; PULSE 85; RESP 18; TEMP 36.6; O2SAT 95; BMI 39.0
[2020-10-08 18:44] LABS: MANUAL DIFF FLAG NO
[2020-10-08 18:45] LABS: Basophils Absolute Auto 0.1 X10*3/uL (0.0-0.2); Basophils Percent Auto 0.7 % (0-2); Eosinophils Absolute Auto 0.1 X10*3/uL (0.0-0.4); Eosinophils Percent Auto 0.9 % (0-4); Hematocrit 41.5 % (37-47); Hemoglobin 13.5 g/dl (12.0-16.0); Imm Gran Abs Auto 0.03 X10*3/uL (0.00-0.03); Imm Gran Pct Auto 0.3 % (0.0-0.4); Lymphocytes Absolute Auto 1.6 X10*3/uL (1.2-4.9); Mean Corpuscular HGB Conc 32.5 g/dl (31.0-35.0); Mean Corpuscular Volume 92.2 fL (80-98); Mean Platelet Volume 9.3 fL (9.4-12.3); Monocytes Absolute Auto 0.7 X10*3/uL (0.1-1.2); Monocytes Percent Auto 7.8 % (2-11); Neutrophils Absolute Auto 6.6 X10*3/uL (2.0-8.3); Neutrophils Percent Auto 72.3 % (45-73); Platelet Count 244 X10*3/uL (160-400); Red Cell Distribution Width 12.7 % (11.0-16.0); White Blood Count 9.1 X10*3/uL (4.8-10.8)
[2020-10-08 18:45] LABS: Glucose Urine UA NEG (NEG); Leukocyte Esterase Urine NEG (NEG); Nitrite Urine NEG (NEG); Specific Gravity - Urine <= 1.005 (1.005-1.025); Urine Blood TRACE (NEG); Urine Ketones NEG (NEG); Urine Protein NEG (NEG-TRACE)
[2020-10-08 18:46] LABS: Appearance Urine CLEAR; Color Urine YELLOW
[2020-10-08 18:47] LABS: UPreg QC Valid YES; Urine Pregnancy NEGATIVE (NEGATIVE)
[2020-10-08 18:55] LABS: RBC Urine 0 /HPF (0); WBC Urine 0 /HPF (0-4)
[2020-10-08 19:12] LABS: Alanine Aminotransferase 33 U/L (0-31); Albumin Level 4.2 g/dL (3.5-5.0); Alkaline Phosphatase 88 U/L (39-117); Anion Gap 15 (12-20); Aspartate Amino Transferase 26 U/L (5-31); Bilirubin Direct 0.2 mg/dL (0.0-0.5); Bilirubin Total 0.6 mg/dL (0.0-1.0); Blood Urea Nitrogen 4 mg/dL (9-16); Calcium 9.2 mg/dL (8.4-10.2); Carbon Dioxide 25 mmol/L (22-29); Chloride 101 mmol/L (96-108); Creatinine Clr Calc Pharmacy 126.7; Estimated Glomerular Filt Rate > 60; Glucose Random 83 mg/dL (60-115); Lipase 25 U/L (8-78); Potassium 3.8 mmol/L (3.3-5.1); Sodium 137 mmol/L (135-145); Total Protein 7.5 g/dL (6.5-8.0)
--- NOTE | 2020-10-08 20:53 | ED.ABDPAIN ---
HPI - Abdominal Pain General Chief Complaint: Abdominal Pain Stated Complaint: covid ? Time Seen by Provider: 10/08/20 20:28 Source: patient Mode of arrival: ambulatory Limitations: no limitations History of Present Illness HPI narrative: Patient comes emergency room complaining of abdominal pain. Patient was discharged from the hospital on September 27, she was hospitalized for colitis, discharged with metronidazole and cefuroxime. Patient states that after she got discharged, she had diarrhea then had loose stool. For the last 2 days, patient has had increased water stool, vomiting or nausea, patient reports that temperature of 100.3 degrees last night, and worsening abdominal cramping. MD elicited complaint: abdominal pain Related Data Home Medications Medication Instructions Recorded Confirmed cyclobenzaprine 1 tab PO DAILY 09/24/20 09/24/20 loratadine 10 mg PO DAILY 09/24/20 09/24/20 Previous Rx's Medication Instructions Recorded cefuroxime axetil 500 mg PO Q12H #8 tab 09/27/20 metronidazole 500 mg PO Q12H #8 tab 09/27/20 ondansetron 4 mg PO Q6H PRN #14 tab 09/27/20 Lactobacillus rhamnosus GG 1 cap PO DAILY #10 cap 10/08/20 [Culturelle] amoxicillin-pot clavulanate 1 tab PO BID #19 tab 10/08/20 [Augmentin] oxycodone 5 mg PO Q8H PRN #10 tab 10/08/20 Allergies Allergy/AdvReac Type Severity Reaction Status Date / Time cephalexin [From Keflex] Allergy Rash Verified 10/08/20 16:05 sulfamethoxazole Allergy Rash Verified 10/08/20 16:05 [From Bactrim] trimethoprim [From Bactrim] Allergy Rash Verified 10/08/20 16:05 Review of Systems Review of Systems Constitutional : No Weight loss, No Fever, No Chills, No Night Sweats, complaining of general malaise ENT/Mouth : No Hearing loss, No Ear Pain, No Nasal Congestion, No Sinus Pain, No Hoarseness, No sore throat, No Rhinorrhea, No Swallowing Difficulty Eyes: No Eye Pain, No Swelling, No Redness, No Foreign Body, No Discharge, No Vision Changes Cardiovascular : No Chest Pain, No SOB, No Dyspnea on Exertion, No Orthopnea, No Edema, No Palpitations Respiratory : No Cough, No Sputum, No Wheezing, No Smoke Exposure, No Dyspnea Gastrointestinal : Complaining of nausea and vomiting, diarrhea,No Constipation, diffuse abdominal cramping, No Hematochezia, No Melena Genitourinary : no irregular bleeding, No Dysuria, No Urinary Frequency, No Hematuria, No Urinary Incontinence, No Urgency, No Flank Pain, No Urinary Flow Changes, No Hesitancy Musculoskeletal : No joint pain, No Myalgias, No Joint Swelling Skin : No Skin Lesions, No rash Neuro : No Weakness, No Numbness, No Paresthesias, No Loss of Consciousness, No Dizziness, No Headache Psych : No Anxiety/Panic, No Depression, No SI/HI/AH/VH, No Social Issues, Heme/Lymph: No Bruising, No Bleeding,No Lymphadenopathy Endocrine : No Polyuria, No Polydipsia, No Temperature Intolerance Physical Exam Vital Signs: Vital Signs: Last Vital Signs Temp 98.4 F 10/08/20 21:02 Pulse 70 10/08/20 22:00 Resp 15 10/08/20 22:00 BP 141/85 H 10/08/20 22:00 Pulse Ox 98 10/08/20 22:00 Body Mass Index 39.0 Appearance: Alert. Oriented X3. No acute distress. Eyes: Pupils equal, round and reactive to light. ENT: Pharynx normal. Neck: Normal inspection. Neck supple. No lymph nodes noted. No crepitus CVS: Normal heart rate and rhythm. Pulses normal. Normal S1 and S2 Respiratory: No respiratory distress. Breath sounds normal. No Wheezing. No rales Abdomen: Soft, diffuse abdominal pain on deep palpation, worse in the upper quadrants bilaterally, No rigidity. No distention Skin: Skin warm and dry. Normal skin color. Normal skin turgor. Extremities: No lower extremity edema. No lower extremity edema. No Lacerations. No Rash Neuro: Oriented X 3. No motor deficit. No sensory deficit. Moving all extermities. No slurred speech. Course Course Course Narrative: I discussed the labs and imaging with the patient, on previous CT scan, patient had moderate to severe segmental wall thickening, but on the CT scan, it shows improvement, however the splenic flexure and descending colon and a more thickened. Patient's white blood cell count within normal limits. I discussed with the patient admission versus discharge home. Patient decided to be discharged home. Patient will be sent with oral antibiotics (Augmentin) and pain medication. Although she is allergic to cephalexin, patient states that she has taken Augmentin in the past with no adverse or significant side effects. Patient instructed to follow-up with her primary care physician and Gastroenterology. At this time, patient feels better with abdominal pain, however she is afraid that the pain will return. Patient started to return to the emergency room if she has any worsening or new symptoms. MDM - Abdominal Pain Lab Data Result diagrams: 10/08/20 18:35 10/08/20 18:36 Labs: Lab Results 10/08/20 10/08/20 10/08/20 Range/Units 18:35 18:36 18:36 WBC 9.1 (4.8-10.8) X10*3/uL RBC 4.50 (4.20-5.50) X10*6/uL Hgb 13.5 (12.0-16.0) g/dl Hct 41.5 (37-47) % MCV 92.2 (80-98) fL MCH 30.0 (27.0-33.0) pg MCHC 32.5 (31.0-35.0) g/dl RDW 12.7 (11.0-16.0) % Plt Count 244 (160-400) X10*3/uL MPV 9.3 L (9.4-12.3) fL Immature Gran % (Auto) 0.3 (0.0-0.4) % Neut % (Auto) 72.3 (45-73) % Lymph % (Auto) 18.0 L (20-40) % Boundary % (Auto) 7.8 (2-11) % Eos % (Auto) 0.9 (0-4) % Baso % (Auto) 0.7 (0-2) % Lymph # (Auto) 1.6 (1.2-4.9) X10*3/uL Bound[place] # (Auto) 0.7 (0.1-1.2) X10*3/uL Eos # (Auto) 0.1 (0.0-0.4) X10*3/uL Baso # (Auto) 0.1 (0.0-0.2) X10*3/uL Abs Immat Gran (auto) 0.03 (0.00-0.03) X10*3/uL Absolute Neuts (auto) 6.6 (2.0-8.3) X10*3/uL Absolute Nucleated RBC 0.000 (0.0-0.012) X10*3/uL Nucleated RBC % (auto) 0.0 (0.0-0.2) /100WBC Sodium 137 (135-145) mmol/L Potassium 3.8 (3.3-5.1) mmol/L Chloride 101 (96-108) mmol/L Carbon Dioxide 25 (22-29) mmol/L Anion Gap 15 (12-20) BUN 4 L (9-16) mg/dL Creatinine 0.72 (0.5-1.4) mg/dL Estim Creat Clear Calc 126.7 Estimated GFR > 60 Random Glucose 83 D (60-115) mg/dL Calcium 9.2 D (8.4-10.2) mg/dL Total Bilirubin 0.6 (0.0-1.0) mg/dL Direct Bilirubin 0.2 (0.0-0.5) mg/dL AST 26 D (5-31) U/L ALT 33 H (0-31) U/L Alkaline Phosphatase 88 (39-117) U/L Total Protein 7.5 (6.5-8.0) g/dL Albumin 4.2 (3.5-5.0) g/dL Lipase 25 (8-78) U/L Urine Color YELLOW Urine Appearance CLEAR Urine pH 6.0 (5.0-8.0) Ur Specific [place] <= 1.005 (1.005-1.025) Urine Protein NEG (NEG-TRACE) MG/DL Urine Glucose (UA) NEG (NEG) MG/DL Urine Ketones NEG (NEG) MG/DL Urine Blood TRACE (NEG) Urine Nitrite NEG (NEG) Ur Leukocyte Esterase NEG (NEG) Urine RBC 0 (0) /HPF Urine WBC 0 (0-4) /HPF Ur Squamous Epith Cells NONE /LPF Urine Bacteria NONE /LPF Urine Test (NEGATIVE) COVID-19 ([facility]I) (Negative) COVID-19 Clin Com 10/08/20 10/08/20 Range/Units 18:36 21:03 WBC (4.8-10.8) X10*3/uL RBC (4.20-5.50) X10*6/uL Hgb (12.0-16.0) g/dl Hct (37-47) % MCV (80-98) fL MCH (27.0-33.0) pg MCHC (31.0-35.0) g/dl RDW (11.0-16.0) % Plt Count (160-400) X10*3/uL MPV (9.4-12.3) fL Immature Gran % (Auto) (0.0-0.4) % Neut % (Auto) (45-73) % Lymph % (Auto) (20-40) % Bound[place] % (Auto) (2-11) % Eos % (Auto) (0-4) % Baso % (Auto) (0-2) % Lymph # (Auto) (1.2-4.9) X10*3/uL [place] # (Auto) (0.1-1.2) X10*3/uL Eos # (Auto) (0.0-0.4) X10*3/uL Baso # (Auto) (0.0-0.2) X10*3/uL Abs Immat Gran (auto) (0.00-0.03) X10*3/uL Absolute Neuts (auto) (2.0-8.3) X10*3/uL Absolute Nucleated RBC (0.0-0.012) X10*3/uL Nucleated RBC % (auto) (0.0-0.2) /100WBC Sodium (135-145) mmol/L Potassium (3.3-5.1) mmol/L Chloride (96-108) mmol/L Carbon Dioxide (22-29) mmol/L Anion Gap (12-20) BUN (9-16) mg/dL Creatinine (0.5-1.4) mg/dL Estim Creat Clear Calc Estimated GFR Random Glucose (60-115) mg/dL Calcium (8.4-10.2) mg/dL Total Bilirubin (0.0-1.0) mg/dL Direct Bilirubin (0.0-0.5) mg/dL AST (5-31) U/L ALT (0-31) U/L Alkaline Phosphatase (39-117) U/L Total Protein (6.5-8.0) g/dL Albumin (3.5-5.0) g/dL Lipase (8-78) U/L Urine Color Urine Appearance Urine pH (5.0-8.0) Ur Specific [place] (1.005-1.025) Urine Protein (NEG-TRACE) MG/DL Urine Glucose (UA) (NEG) MG/DL Urine Ketones (NEG) MG/DL Urine Blood (NEG) Urine Nitrite (NEG) Ur Leukocyte Esterase (NEG) Urine RBC (0) /HPF Urine WBC (0-4) /HPF Ur Squamous Epith Cells /LPF Urine Bacteria /LPF Urine Test NEGATIVE (NEGATIVE) COVID-19 ([facility]ONI) Negative (Negative) COVID-19 Clin Com See Note Imaging Data CT scan - abdomen: Radiologist's impression: LUNG BASES: The visualized lung bases are unremarkable. Bibasilar atelectasis is present. LIVER, GALLBLADDER, AND BILIARY TREE: The liver is normal in size, shape, and attenuation. No focal hepatic lesion or biliary ductal dilatation is present. The gallbladder is unremarkable with no evidence of radiopaque gallstones, gallbladder wall thickening, or obvious pericholecystic inflammatory changes. PANCREAS: Unremarkable. SPLEEN: Unremarkable. ADRENAL GLANDS: Unremarkable. KIDNEYS AND URETERS: The kidneys are normal in size, shape, and attenuation. No hydronephrosis, hydroureter, or calculi seen. No perinephric stranding. BLADDER: Unremarkable. GASTROINTESTINAL TRACT: Since the prior study which demonstrated moderate to severe segmental wall thickening of the transverse colon there has been some improvement in appearances of this. However, splenic flexure and the descending colon including a portion of the sigmoid now appear more thickened than previously noted possibly suggesting colitis in this region as well. No pneumatosis is seen. No free air is seen. The appendix is not visualized but there is no evidence of appendicitis. ABDOMINAL WALL: No significant hernia is appreciated. LYMPH NODES: No retroperitoneal lymphadenopathy. VASCULAR: The abdominal aorta appears normal. The celiac SMA and SHEELA are all widely patent and well seen. Single renal arteries are present bilaterally which are patent. The portal venous system appears normal the IVC renal veins and hepatic veins all appear normal. PELVIC VISCERA: Surgically removed OSSEOUS STRUCTURES: Degenerative changes at L5-S1 are present. CT/CT abdomen pelvis w con IMPRESSION: Although the transverse colon appears less thickened than previously seen, there appears to be some mucosal thickening now involving the hepatic flexure descending colon and a portion of the sigmoid. Findings remain suggestive of colitis. Discharge Plan Discharge Clinical Impression: Colitis Patient Disposition: Home, Self-Care Instructions: Colitis (ED) Additional Instructions: Please follow-up with your primary care physician tomorrow. If you have any worsening or new symptoms, please return to the emergency room or call 911 Prescriptions: New amoxicillin-pot clavulanate [Augmentin] 875-125 mg tablet 1 tab PO BID Qty: 19 RF: 0 oxycodone 5 mg tablet 5 mg PO Q8H PRN (Reason: pain) Qty: 10 RF: 0 Culturelle 10 billion cell capsule 1 cap PO DAILY Qty: 10 RF: 0 No Action cyclobenzaprine 10 mg tablet 1 tab PO DAILY RF: 0 loratadine 10 mg Tablet 10 mg PO DAILY RF: 0 metronidazole 500 mg Tablet 500 mg PO Q12H Qty: 8 RF: 0 cefuroxime axetil 500 mg tablet 500 mg PO Q12H Qty: 8 RF: 0 ondansetron 4 mg tablet,disintegrating 4 mg PO Q6H PRN (Reason: nausea and vomiting) Qty: 14 RF: 0 PMFSH Social History Social History Smoking Status: Current every day smoker Advance Directives: No Advance Directives Information Provided: Yes service: No
[2020-10-08 21:02] VITALS: BP 141/85; PULSE 73; RESP 18; TEMP 36.9; O2SAT 96
[2020-10-08] MEDS: Ketorolac Tromethamine 30 MG/ML VIAL IVPUSH (21:15)
[2020-10-08] MEDS: 0.9 % Sodium Chloride 1,000 ML 999 ML IVCONT (21:17)
[2020-10-08 21:26] LABS: COVID-19 Test Negative (Negative)
[2020-10-08] MEDS: iohexoL 350 MG/ML 100 ML INFUS..BTL IV (21:29)
[2020-10-08 22:00] VITALS: BP 141/85; PULSE 70; RESP 15; O2SAT 98
[2020-10-08] MEDS: Amoxicillin/Potassium Clav 875 MG TABLET PO (22:58)
== END 2020-10-08 23:03 | disposition home or self-care (01) ==
PROVIDERS: Emergency Medicine; Emergency Provider Emergency Medicine
DX: K52.9 Noninfective gastroenteritis and colitis, unspecified (principal); Z20.822 Contact with and (suspected) exposure to COVID-19; R50.9 Fever, unspecified; R11.0 Nausea
CPT/HCPCS: 36415; 74177; 80048; 80076; 81001; 81025; 83690; 85025; 87635; 96361; 96374; 99284; 99285; J1885; Q9967

== ENCOUNTER 2021-03-04 06:25 | Emergency (ER) | payer BC, SELFPAY ==
[2021-03-04 06:45] VITALS: BP 147/78; PULSE 87; RESP 18; TEMP 36.4; O2SAT 96; BMI 41.0
--- NOTE | 2021-03-04 07:21 | ED.WOUNDLAC ---
HPI - Wound/Laceration General Chief Complaint: Wound/Laceration Stated Complaint: blood in belly button Time Seen by Provider: 03/04/21 07:21 Source: patient Mode of arrival: ambulatory Limitations: no limitations History of Present Illness HPI narrative: 50-year-old female came in for evaluation of discharge from the belly bottom, started 1 day ago. No fever, no chills. Patient remotely had laparoscopic hysterectomy patient had multiple times of umbilical drainage after the surgery that is usually treated with antibiotic and I and D in the past. Related Data Home Medications Medication Instructions Recorded Confirmed cyclobenzaprine 10 mg tablet 1 tab PO DAILY 09/24/20 09/24/20 loratadine 10 mg tablet 10 mg PO DAILY 09/24/20 09/24/20 Previous Rx's Medication Instructions Recorded cefuroxime axetil 500 mg tablet 500 mg PO Q12H #8 tab 09/27/20 metronidazole 500 mg tablet 500 mg PO Q12H #8 tab 09/27/20 ondansetron 4 mg disintegrating 4 mg PO Q6H PRN #14 tab 09/27/20 tablet Lactobacillus rhamnosus GG 10 1 cap PO DAILY #10 cap 10/08/20 billion cell capsule (Culturelle) amoxicillin 875 mg-potassium 1 tab PO BID #19 tab 10/08/20 clavulanate 125 mg tablet (Augmentin) oxycodone 5 mg tablet 5 mg PO Q8H PRN #10 tab 10/08/20 doxycycline hyclate 100 mg tablet 100 mg PO BID #14 tab 03/04/21 Allergies Allergy/AdvReac Type Severity Reaction Status Date / Time cephalexin [From Keflex] Allergy Rash Verified 10/08/20 16:05 sulfamethoxazole Allergy Rash Verified 10/08/20 16:05 [From Bactrim] trimethoprim [From Bactrim] Allergy Rash Verified 10/08/20 16:05 Review of Systems Review of Systems: All other systems are reviewed and are negative Constitutional: Reports as per HPI and Reports no additional constitutional complaints Eyes: Reports as per HPI and Reports no additional eye complaints Reports system reviewed and no additional complaints, except as documented Cardiovascular: Reports as per HPI and Reports no additional cardiovascular complaints Respiratory: Reports as per HPI and Reports no additional respiratory complaints Gastrointestinal: Reports as per HPI and Reports no additional gastrointestinal complaints Genitourinary: Reports no additional female genitourinary complaints Musculoskeletal: Reports no additional musculoskeletal complaints Skin/Breast: Reports system reviewed and no additional complaints, except as docu Psychiatric: Reports no additional psychiatric complaints Endocrine: Reports no additional endocrine complaints Hematologic/Lymphatic: Reports no additional hematologic/lymphatic complaints Allergic/Immunologic: Reports no additional allergic/immunologic complaints Reports system reviewed and no additional complaints, except as documented and Reports Abnormal speech present [facility] Past Medical History Medical History Obesity Surgical History H/O: hysterectomy Social History Social History Advance Directives: Yes Advance Directives on File: Yes Advance Directives Date on File: 09/30/20 service: No Physical Exam Vital Signs: Vital Signs: Last Vital Signs Temp 97.6 F 03/04/21 06:45 Pulse 87 03/04/21 06:45 Resp 18 03/04/21 06:45 BP 147/78 H 03/04/21 06:45 Pulse Ox 96 03/04/21 06:45 Body Mass Index 41.0 Vital signs have been reviewed as appeared to be correct. Blood pressure normal. Heart rate normal. Respiration rate normal. Temperature normal. Oxygen saturation normal. Appearance: Alert. Oriented X3. No acute distress. Head: Normal external exam. Normocephalic. Atraumatic. No Chav[place]ria signs noted. No raccoon eyes noted Eyes: PERRLA. EOMI. Conjunctiva and sclera normal. Eyelids normal. ENT: TM's Normal. Pharynx normal. Uvula midline. Moist mucous membranes. No trismus noted. No drooling noted. No muffled voice noted. Neck: Normal inspection. Neck supple. FROM. No adenopathy. Thyroid Normal. No meningeal signs. No neck mass noted. CVS: Normal heart rate and rhythm. Heart sound normal. No murmurs noted. Pulses normal throughout. Respiratory: No respiratory distress. Painless inspiration. Breath sounds normal. No wheezes/rales/rhonchi noted. Chest nontender. No accessory muscle usage noted or decreased air movement noted. Abdomen: Soft and nontender. Bowel sounds normal in all 4 quadrants. No distention noted. No organomegaly noted. No visible injury noted. Back: No CVA tenderness. Full range of motion noted. Skin: Skin warm and dry. Normal skin color. Normal skin turgor. No rashes/lesions/lacerations noted. Extremities: No lower extremity edema. Extremities exhibit normal range of motion. Extremities nontender. Neuro: Oriented X 3. Cranial nerve exam: II-XII are grossly intact No motor deficit. No sensory deficit. Reflexes normal. Course Course Course Narrative: Assessment and plan. 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 Start the patient on doxycycline. Return to the ED for wound check in 2 days. Discharge Plan Discharge Clinical Impression: Cellulitis of umbilicus Patient Disposition: Home, Self-Care Instructions: Cellulitis (ED) Additional Instructions: Return to the emergency department in 2 days for wound check. Prescriptions: New doxycycline hyclate 100 mg tablet 100 mg PO BID Qty: 14 RF: 0 No Action amoxicillin-pot clavulanate [Augmentin] 875-125 mg tablet 1 tab PO BID Qty: 19 RF: 0 oxycodone 5 mg tablet 5 mg PO Q8H PRN (Reason: pain) Qty: 10 RF: 0 Culturelle 10 billion cell capsule 1 cap PO DAILY Qty: 10 RF: 0 cyclobenzaprine 10 mg tablet 1 tab PO DAILY RF: 0 loratadine 10 mg Tablet 10 mg PO DAILY RF: 0 metronidazole 500 mg Tablet 500 mg PO Q12H Qty: 8 RF: 0 cefuroxime axetil 500 mg tablet 500 mg PO Q12H Qty: 8 RF: 0 ondansetron 4 mg tablet,disintegrating 4 mg PO Q6H PRN (Reason: nausea and vomiting) Qty: 14 RF: 0 Referrals: Arash Velásquez DO [Primary Care Provider] - 2 days
== END 2021-03-04 07:55 | disposition home or self-care (01) ==
PROVIDERS: Emergency Provider Emergency Medicine; PCP Family Medicine
DX: L03.316 Cellulitis of umbilicus (principal)
CPT/HCPCS: 99283

== ENCOUNTER 2021-06-18 05:54 | Emergency (ER) | payer BC, SELFPAY ==
[2021-06-18 06:17] VITALS: BP 136/80; PULSE 95; RESP 16; TEMP 36.8; O2SAT 96; BMI 41.8
[2021-06-18 06:30] LABS: IDNOW Serial# 9DD0AD1C
[2021-06-18 06:32] LABS: COVID-19 Test Positive (Negative)
[2021-06-18 07:12] VITALS: BP 145/71; PULSE 99; RESP 17; TEMP 37.4; O2SAT 94
--- NOTE | 2021-06-18 08:02 | ED_ITS ---
HPI - URI/Sore Throat General Chief Complaint: Upper Respiratory Symptoms Stated Complaint: fever, chills, cough, vomiting Time Seen by Provider: 06/18/21 07:30 Source: patient Mode of arrival: ambulatory Limitations: no limitations History of Present Illness HPI Narrative: 51-year-old female who presents emergency department for evaluation of fever, chills, cough, right ear pain and sore throat. The patient states that she had a colonoscopy at [facility] 2 days prior. She states that she had a negative COVID-19 test prior to the procedure. This was a routine colonoscopy. She states that yesterday she developed sinus congestion. She states that this morning her symptoms got worse. She states that she had a cough which is nonproductive. She had fever and shaking chills. She had mild shortness of breath at rest with no dyspnea on exertion. She developed a sore throat and feels like the glans of her neck her swollen. She also has right ear pain with diminished hearing in the right ear. She complains of myalgias. 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 She has not had a booster shot yet. Related Data Home Medications Medication Instructions Recorded Confirmed cyclobenzaprine 10 mg tablet 1 tab PO DAILY 09/24/20 09/24/20 loratadine 10 mg tablet 10 mg PO DAILY 09/24/20 09/24/20 Previous Rx's Medication Instructions Recorded cefuroxime axetil 500 mg tablet 500 mg PO Q12H #8 tab 09/27/20 metronidazole 500 mg tablet 500 mg PO Q12H #8 tab 09/27/20 ondansetron 4 mg disintegrating 4 mg PO Q6H PRN #14 tab 09/27/20 tablet Lactobacillus rhamnosus GG 10 1 cap PO DAILY #10 cap 10/08/20 billion cell capsule (Culturelle) amoxicillin 875 mg-potassium 1 tab PO BID #19 tab 10/08/20 clavulanate 125 mg tablet (Augmentin) oxycodone 5 mg tablet 5 mg PO Q8H PRN #10 tab 10/08/20 doxycycline hyclate 100 mg tablet 100 mg PO BID #14 tab 03/04/21 amoxicillin 875 mg-potassium 1 tab PO Q12H 10 Days #20 tab 06/18/21 clavulanate 125 mg tablet (Augmentin) benzonatate 100 mg capsule 200 mg PO TID PRN #20 cap 06/18/21 ondansetron 4 mg disintegrating 4 mg PO Q6-8H PRN #14 tab 06/18/21 tablet oxycodone 5 mg tablet 5 mg PO Q4H PRN #14 tab 06/18/21 Allergies Allergy/AdvReac Type Severity Reaction Status Date / Time cephalexin [From Keflex] Allergy Rash Verified 10/08/20 16:05 sulfamethoxazole Allergy Rash Verified 10/08/20 16:05 [From Bactrim] trimethoprim [From Bactrim] Allergy Rash Verified 10/08/20 16:05 Review of Systems Review of Systems: Yes all other systems are reviewed and are negative Neurologic: Reports Abnormal speech present [facility] Past Medical History [facility] Narrative: Past medical history colitis secondary to food poisoning. Past surgical history laparoscopic hysterectomy in 2014, in 1993. Social history: She is a traveling PACU nurse. She denies tobacco use. She occasionally drinks alcohol. She denies drug use. Medical History Obesity Surgical History H/O: hysterectomy Social History Social History Alcohol intake: never Patient Tobacco Use Status: Never used Tobacco Use of substances other than those prescribed or required for medical reasons: No Advance Directives: Yes Advance Directives on File: Yes Advance Directives Date on File: 09/30/20 service: No Physical Exam Vital Signs: Vital Signs: Last Vital Signs Temp 99.4 F 06/18/21 07:12 Pulse 99 06/18/21 07:12 Resp 17 06/18/21 07:12 BP 145/71 H 06/18/21 07:12 Pulse Ox 94 06/18/21 07:12 BMI result Body Mass Index 41.8 Const: Other: Very pleasant and cooperative female patient, she does have a dry nonproductive sounding cough, she appears to be in mild distress secondary to her illness, she answers all questions appropriately. HENMT: Head: Yes normal to inspection, Yes normocephalic and Yes atraumatic Ears: hearing grossly normal bilaterally and TM abnormal bulging (With loss of landmarks, no erythema) on the right General nose exam: Normal external nose present Face and sinus: Yes normal facial exam Mouth: Normal oral and palatal mucosa present, lip normal, tongue normal, oropharynx normal and moist mucous membranes Throat: Yes posterior oropharynx normal, Yes tonsils normal and Yes uvula midline Eyes: General: appearance normal, both eyes and all related structures Eyelids: Yes eyelids normal Conjunctivae: conjunctivae normal Sclerae: sclerae normal Corneas: corneas normal Pupils: Equal, round and reactive pupils present Neck: Neck: Yes normal visual inspection, Yes trachea midline, Yes supple and Yes lymphadenopathy (Tender anterior cervical chain adenopathy right greater than left) Thyroid: Thyroid normal Lymphatic: no lymphadenopathy noted Chest: Chest palpation & inspection: normal inspection of the chest and normal palpation of entire chest wall Resp: Effort & Inspection: normal respiratory effort and able to speak in complete sentences Auscultation: clear to auscultation bilaterally Cardio: Rate: regular rate Rhythm: regular rhythm Heart sounds: S1 normal heart sound present, S2 normal heart sound present and no murmurs GI: Inspection: Yes obesity Palpation (GI): Soft to palpation, nontender and No hepatosplenomegaly present Auscultation: normal bowel sounds : General: Yes no CVA tenderness Back/Spine/Pelvis: Back: no CVA tenderness Thoracic/Lumbar Spine: thoracic and lumbar spine normal to inspection Skin: General skin exam: no rashes or lesions noted, no erythema and no jaundice Lesions: no lesions Rashes: no rashes Trauma: no lacerations or abrasions Wounds: no wounds Neuro: General: moves all extremities and no focal motor deficits Cranial nerves: Yes Equal, round and reactive pupils present Cognition (Neuro): normal cognition Speech: Abnormal speech present Motor exam (neuro): Motor abnormalities not present Extrem: General: Yes normal to inspection, Yes no pedal edema and Yes no calf tenderness Right upper extremity: normal to inspection Left upper extr emity: normal to inspection Right lower extremity: normal to inspection Left lower extremity: normal to inspection Psych: Appearance: grossly normal Mental Status: mental status grossly normal Speech and movement: Normal speech and movement present Affect: normal affect Attitude: cooperative Thought process: Normal thought process present Insight: Good insight present (Psych) Course Course Course Narrative: 51-year-old female who presents emergency department for evaluation of 2 days of viral-like symptoms including nonproductive cough, sinus congestion, right ear pain with diminished hearing, fever, chills, myalgias and sore throat. The patient works as a traveling PACU nurse. She had a colonoscopy 2 days prior. She tested negative for COVID-19 prior to her colonoscopy and has been symptomatic for approximately 1-2 days. Patient was vaccinated with the Moderna COVID-19 vaccine with her 2nd vaccine been given in June of 2020. Patient's physical examination is consistent with right otitis media otherwise unremarkable, her O2 saturation was 94-96% on room air. Patient's presentation is consistent with COVID-19 infection given her otitis media I will treat her with Augmentin 875 twice a day for 10 days. Patient also has nausea and this were treated with Zofran ODT 4 mg every 6-8 hours as needed. Given her obesity, the patient is at increased risk for morbidity and mortality from her COVID-19 infection therefore she will be referred to the [facility] COVID- 19 monoclonal antibody infusion clinic. MDM - URI/Sore Throat Lab Data Labs: Lab Results 06/18/21 Range/Units 06:17 COVID-19 ([facility]) Positive A (Negative) COVID-19 Clin Com See Note Discharge Plan Discharge Clinical Impression: COVID-19, Nausea Otitis media Qualifiers: Otitis media type: unspecified Laterality: right Qualified Code(s): H66.91 - Otitis media, unspecified, right ear Patient Disposition: Home, Self-Care Instructions: Ear Infection (ED), COVID-19 (Coronavirus Disease 2019) (ED) Additional Instructions: Your COVID-19 test was positive. Your symptoms are consistent with the COVID-19 virus infection. Your O2 saturation today was between 94 96%. This is good. We usually do not hospitalize anyone for COVID-19 until there O2 saturation drops below 88% or if they have significant symptoms of pneumonia with shortness of breath with exertion. The examination of your right ear revealed bulging of the tympanic membrane with loss of the bony landmarks and this is consistent with an ear infection. Take Augmentin 875/1251 pill twice a day for 10 days for ear infection. Take Zofran ODT 4 mg pills, 1 pill dissolved in your mouth every 8 hours as needed for nausea and vomiting. Take ibuprofen 200 mg pills, 3 pills every 6 hours as needed for pain. Take Tylenol (acetaminophen) 500 mg pills, 2 pills every 4-6 hours as needed for pain. For pain not relieved by ibuprofen or Tylenol take oxycodone 5 mg pills, 1 pill every 4 hours as needed for pain. Do not drive or work while taking this medication since they can cause sleepiness. Oxycodone is a narcotic medication that can be addicting. If you are concerned about addiction you can ask the pharmacist for less pills or do not get this prescription filled. For cough take Tessalon Perles, 200 mg pills, 1 pill 3 times a day as needed. I am referring you to the [place] [id number] monoclonal antibody infusion clinic. I sent your referral to the clinic by e-mail. Please call the number at the bottom of the form to make sure that you get an appointment for monoclonal antibodies as soon as possible. Follow-up with your doctor in 2 days. Please return to the emergency department if your symptoms get worse or if you develop any symptoms that are concerning to you. Please see work note. Prescriptions: New amoxicillin-pot clavulanate [Augmentin] 875-125 mg tablet 1 tab PO Q12H 10 Days Qty: 20 RF: 0 ondansetron 4 mg tablet,disintegrating 4 mg PO Q6-8H PRN (Reason: nausea and vomiting) Qty: 14 RF: 0 oxycodone 5 mg tablet 5 mg PO Q4H PRN (Reason: pain) Qty: 14 RF: 0 benzonatate 100 mg capsule 200 mg PO TID PRN (Reason: cough) Qty: 20 RF: 0 No Action amoxicillin-pot clavulanate [Augmentin] 875-125 mg tablet 1 tab PO BID Qty: 19 RF: 0 oxycodone 5 mg tablet 5 mg PO Q8H PRN (Reason: pain) Qty: 10 RF: 0 Culturelle 10 billion cell capsule 1 cap PO DAILY Qty: 10 RF: 0 doxycycline hyclate 100 mg tablet 100 mg PO BID Qty: 14 RF: 0 cyclobenzaprine 10 mg tablet 1 tab PO DAILY RF: 0 loratadine 10 mg Tablet 10 mg PO DAILY RF: 0 metronidazole 500 mg Tablet 500 mg PO Q12H Qty: 8 RF: 0 cefuroxime axetil 500 mg tablet 500 mg PO Q12H Qty: 8 RF: 0 ondansetron 4 mg tablet,disintegrating 4 mg PO Q6H PRN (Reason: nausea and vomiting) Qty: 14 RF: 0 Stand Alone Forms: Work/School Release
== END 2021-06-18 08:44 | disposition home or self-care (01) ==
PROVIDERS: Emergency Provider Emergency Medicine Emergency Medical Services; PCP Family Medicine
DX: U07.1 COVID-19 (principal); R50.9 Fever, unspecified; H66.91 Otitis media, unspecified, right ear; R05.9 Cough, unspecified; Z79.899 Other long term (current) drug therapy
CPT/HCPCS: 36415; 87635; 99283; 99284

== ENCOUNTER 2021-11-19 10:02 | Emergency (ER) | payer BC, SELFPAY ==
--- NOTE | ~2021-11-19 | XR_ITS ---
EXAMINATION: XR CHEST CLINICAL INFORMATION: Upper respiratory tract symptoms COMPARISON: None TECHNIQUE: Frontal view of the chest was obtained. FINDINGS: No significant abnormality is noted involving the heart, lungs, mediastinum, bony thorax or soft tissues. XR/XR chest 1V IMPRESSION: Unremarkable examination.
[2021-11-19 10:43] VITALS: BP 149/84; PULSE 90; RESP 17; TEMP 36.1; O2SAT 97
[2021-11-19 11:19] LABS: Strep A Nucleic Acid Negative (Negative)
[2021-11-19 11:20] LABS: COVID-19 Test Negative (Negative); IDNOW Serial# 9DD0AD1C
[2021-11-19 11:30] LABS: IDNOW Serial# 55D5AD1C; Influenza A Negative (Negative); Influenza B2 Negative (Negative)
--- NOTE | 2021-11-19 12:27 | ED_ITS ---
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 although no sick contacts that she is aware of) Associated symptoms: chills, myalgias, headache, rhinorrhea, nasal congestion, sore throat and cough Treatments prior to arrival: none Related Data Home Medications Medication Instructions Recorded Confirmed cyclobenzaprine 10 mg tablet 1 tab PO DAILY 09/24/20 09/24/20 loratadine 10 mg tablet 10 mg PO DAILY 09/24/20 09/24/20 Previous Rx's Medication Instructions Recorded cefuroxime axetil 500 mg tablet 500 mg PO Q12H #8 tab 09/27/20 metronidazole 500 mg tablet 500 mg PO Q12H #8 tab 09/27/20 ondansetron 4 mg disintegrating 4 mg PO Q6H PRN #14 tab 09/27/20 tablet Lactobacillus rhamnosus GG 10 1 cap PO DAILY #10 cap 10/08/20 billion cell capsule (Culturelle) amoxicillin 875 mg-potassium 1 tab PO BID #19 tab 10/08/20 clavulanate 125 mg tablet (Augmentin) oxycodone 5 mg tablet 5 mg PO Q8H PRN #10 tab 10/08/20 doxycycline hyclate 100 mg tablet 100 mg PO BID #14 tab 03/04/21 amoxicillin 875 mg-potassium 1 tab PO Q12H 10 Days #20 tab 06/18/21 clavulanate 125 mg tablet (Augmentin) benzonatate 100 mg capsule 200 mg PO TID PRN #20 cap 06/18/21 ondansetron 4 mg disintegrating 4 mg PO Q6-8H PRN #14 tab 06/18/21 tablet oxycodone 5 mg tablet 5 mg PO Q4H PRN #14 tab 06/18/21 albuterol sulfate 90 mcg/actuation 1 inh INHALATION QID PRN #8.5 g 11/19/21 aerosol inhaler amoxicillin 875 mg-potassium 1 tab PO BID 14 Days #28 tab 11/19/21 clavulanate 125 mg tablet codeine 10 mg-guaifenesin 100 mg/5 5 ml PO Q6H PRN #120 ml 11/19/21 mL oral liquid (Guaifenesin AC) prednisone 20 mg tablet 40 mg PO DAILY 5 Days #10 tab 11/19/21 Allergies Allergy/AdvReac Type Severity Reaction Status Date / Time cephalexin [From Keflex] Allergy Rash Verified 10/08/20 16:05 sulfamethoxazole Allergy Rash Verified 10/08/20 16:05 [From Bactrim] trimethoprim [From Bactrim] Allergy Rash Verified 10/08/20 16:05 Review of Systems Review of Systems: Constitutional : No Weight loss, No Fever, + Chills, No Night Sweats, + Fatigue, + Malaise ENT/Mouth : No Hearing loss, No Ear Pain, + Nasal Congestion, No Sinus Pain, No Hoarseness, + sore throat, + Rhinorrhea, No Swallowing Difficulty Eyes: No Eye Pain, No Swelling, No Redness, No Foreign Body, No Discharge, No Vision Changes Cardiovascular : No Chest Pain, No SOB, No Dyspnea on Exertion, No Orthopnea, No Edema, No Palpitations Respiratory : + Cough, No Sputum, No Wheezing, No Smoke Exposure, No Dyspnea Gastrointestinal : No Nausea, No Vomiting, No Diarrhea, No Constipation, No abdominal Pain, No Hematochezia, No Melena Genitourinary : no irregular bleeding, No Dysuria, No Urinary Frequency, No Hematuria, No Urinary Incontinence, No Urgency, No Flank Pain, No Urinary Flow Changes, No Hesitancy Musculoskeletal : No joint pain, + Myalgias, No Joint Swelling Skin : No Skin Lesions, No rash Neuro : No Weakness, No Numbness, No Paresthesias, No Loss of Consciousness, No Dizziness, No Headache Psych : No Anxiety/Panic, No Depression, No SI/HI/AH/VH, No Social Issues, Heme/Lymph: No Bruising, No Bleeding,No Lymphadenopathy Endocrine : No Polyuria, No Polydipsia, No Temperature Intolerance Yes all other systems are reviewed and are negative [facility] Past Medical History Attestation statement: The following information was validated with the patient. Medical History Obesity Surgical History H/O: hysterectomy Social History Social History Alcohol intake: never Patient Tobacco Use Status: Never used Tobacco Advance Directives: Yes Advance Directives on File: Yes Advance Directives Date on File: 09/30/20 service: No Physical Exam Vital Signs: Vital Signs: Last Vital Signs Temp 97.0 F 11/19/21 10:43 Pulse 90 11/19/21 10:43 Resp 17 11/19/21 10:43 BP 149/84 H 11/19/21 10:43 Pulse Ox 97 11/19/21 10:43 BMI result Body Mass Index 0.0 vital signs have been reviewed as normal and appeared to be correct. Blood pressure 149/84. Heart rate normal. Respiration rate normal. Temperature normal. Oxygen saturation normal. Appearance: Alert. Oriented X3. No acute distress. Head: Normal external exam. Normocephalic. Atraumatic. Eyes: PERRLA. EOMI. Conjunctiva and sclera normal. Eyelids normal. ENT: EAC normal. TM's Normal. Pharynx normal. Uvula midline. Moist mucous membranes. No lesions/ulcerations or masses noted on the tongue. Normal voice. No trismus noted. No drooling noted. No muffled voice noted. Neck: Normal inspection. Neck supple. FROM. No adenopathy. Thyroid Normal. No tracheal deviation noted. No crepitus is noted. No meningeal signs. No neck mass noted. CVS: Normal heart rate and rhythm. Heart sound normal. Pulses normal throughout. No murmurs/rales/gallops. Respiratory: No respiratory distress. Painless inspiration. Breath sounds normal. No wheezes/rales/rhonchi noted. Chest nontender. No crepitus is noted. No signs of trauma noted. No accessory muscle usage noted or decreased air movement noted. Abdomen: Soft and nontender. Bowel sounds normal in all 4 quadrants. No distention noted. No organomegaly noted. No visible injury noted. Back: No CVA tenderness. Full range of motion noted. Nontender. No signs of trauma. Patient neuro intact bilaterally and distally on all 4 extremities. Patient's reflexes intact bilaterally and distally on all 4 extremities. No rashes/lesion/induration/fluctuance or signs of infection noted. Skin: Skin warm and dry. Normal skin color. Normal skin turgor. No rashes/lesions/lacerations noted. Extremities: No lower extremity edema. No calf tenderness is noted. Extremities exhibit normal range of motion and nontender. Neuro: Oriented X 3. No motor deficit. No sensory deficit. Reflexes normal. Normal steady gait. No focal neuro deficits noted. CN's II-XII intact bilaterally? Vascular: + radial pulses/+ 2 distal pedal pulses/+2 dorsalis pedis b/l. Normal cap refill. No cyanosis noted to upper extremity nails and lower extremity toes nails. Course Course Course Narrative: 51-year-old female presenting to the ED with URI symptoms for the past 2 days worse today. Denies recent travel or sick contacts that she is aware of although she works in a hospital was recently at a concert. Patient negative for strep/influenza/COVID and her chest x-ray was normal. Therefore at this time will DC home with antibiotics and symptomatic treatment for possible bronchitis/sinusitis with instructions return if any new or worsening symptoms to follow up with primary care provider. Patient understands agrees with this plan. MDM - URI/Sore Throat Medical Records Attestation: I reviewed the patient's medical records. Lab Data Attestation: I reviewed the patient's lab results. Labs: Lab Results 11/19/21 11/19/21 11/19/21 Range/Units 10:47 10:47 10:47 COVID-19 ([facility]) Negative (Negative) COVID-19 Clin Com See Note Influenza Type A ([facility]) Negative (Negative) Influenza Type B ([facility]) Negative (Negative) Influenza A & B Note See Note S. pyogenes GrpA [facility] Negative (Negative) Imaging Data Chest x-ray: Attestation: I personally reviewed and interpreted this imaging study as follows: Radiologist's impression: FINDINGS: No significant abnormality is noted involving the heart, lungs, mediastinum, bony thorax or soft tissues. XR/XR chest 1V IMPRESSION: Unremarkable examination. Discharge Plan Discharge Clinical Impression: Bronchitis Patient Disposition: Home, Self-Care Instructions: Acute Bronchitis (ED) Prescriptions: New amoxicillin-pot clavulanate 875-125 mg tablet 1 tab PO BID 14 Days Qty: 28 0RF prednisone 20 mg tablet 40 mg PO DAILY 5 Days Qty: 10 0RF albuterol sulfate 90 mcg/actuation HFA aerosol inhaler 1 inh inhalation QID PRN (Reason: shortness of breath or wheezing) Qty: 8.5 0RF codeine-guaifenesin [Guaifenesin AC] 10-100 mg/5 mL liquid 5 ml PO Q6H PRN (Reason: cold symptoms) Qty: 120 0RF No Action amoxicillin-pot clavulanate [Augmentin] 875-125 mg tablet 1 tab PO BID Qty: 19 0RF oxycodone 5 mg tablet 5 mg PO Q8H PRN (Reason: pain) Qty: 10 0RF Culturelle 10 billion cell capsule 1 cap PO DAILY Qty: 10 0RF doxycycline hyclate 100 mg tablet 100 mg PO BID Qty: 14 0RF cyclobenzaprine 10 mg tablet 1 tab PO DAILY 0RF loratadine 10 mg Tablet 10 mg PO DAILY 0RF metronidazole 500 mg Tablet 500 mg PO Q12H Qty: 8 0RF cefuroxime axetil 500 mg tablet 500 mg PO Q12H Qty: 8 0RF ondansetron 4 mg tablet,disintegrating 4 mg PO Q6H PRN (Reason: nausea and vomiting) Qty: 14 0RF amoxicillin-pot clavulanate [Augmentin] 875-125 mg tablet 1 tab PO Q12H 10 Days Qty: 20 0RF ondansetron 4 mg tablet,disintegrating 4 mg PO Q6-8H PRN (Reason: nausea and vomiting) Qty: 14 0RF oxycodone 5 mg tablet 5 mg PO Q4H PRN (Reason: pain) Qty: 14 0RF Rx Instructions: Patient may request partial fill benzonatate 100 mg capsule 200 mg PO TID PRN (Reason: cough) Qty: 20 0RF Referrals: Arash Velásquez DO [Primary Care Provider] - 2 days Stand Alone Forms: Work/School Release
== END 2021-11-19 12:41 | disposition home or self-care (01) ==
PROVIDERS: Emergency Provider Emergency Medicine Emergency Medical Services; PCP Family Medicine
DX: J40 Bronchitis, not specified as acute or chronic (principal); J02.9 Acute pharyngitis, unspecified; R51.9 Headache, unspecified; M79.10 Myalgia, unspecified site; R05.9 Cough, unspecified; R09.81 Nasal congestion; Z20.822 Contact with and (suspected) exposure to COVID-19; Z79.899 Other long term (current) drug therapy
CPT/HCPCS: 71045; 87502; 87635; 87651; 99283

== ENCOUNTER 2023-12-12 17:16 | Emergency (ER) | payer OTHER, SELFPAY ==
--- NOTE | ~2023-12-12 | CT_ITS ---
EXAMINATION: CT ABDOMEN AND PELVIS WITH CONTRAST CLINICAL INFORMATION: Left upper quadrant pain. History of gastric sleeve. COMPARISON: 10/08/2020 and 09/23/2020. TECHNIQUE: Multidetector volumetric images were obtained from the superior aspect of the liver through the pubic symphysis following administration 85 mL of Omnipaque 350 intravenous contrast. Sagittal and coronal reformatted images were obtained on the technologist's workstation. Oral contrast: No This CT examination was performed using dose optimization techniques as appropriate, variously including the following: *Automated exposure control *Adjustment of mA and/or kV according to patient size (this includes techniques or standardized protocols for targeted exams where dose is matched to indication/reason for exam; i.e. extremities or head) *Use of iterative reconstruction technique DLP: 715 mGy-cm FINDINGS: LUNG BASES: The lung bases appear clear, with no evidence of inflammation or nodules. Trace pericardial fluid. LIVER, GALLBLADDER, AND BILIARY TREE: The liver appears unremarkable in size, shape, and attenuation. No focal hepatic lesion or biliary ductal dilatation is appreciated. Unremarkable appearance of the gallbladder. PANCREAS: Unremarkable SPLEEN: Unremarkable ADRENAL GLANDS: Unremarkable KIDNEYS AND URETERS: The kidneys appear unremarkable in size, shape, and attenuation. No hydronephrosis, hydroureter, or calculi seen. BLADDER: Unremarkable GASTROINTESTINAL TRACT: Evidence of gastric sleeve surgery. The small and large bowel appear unremarkable. ABDOMINAL WALL: No significant hernia is appreciated. LYMPH NODES: No evidence of adenopathy by size criteria. VASCULAR: Unremarkable PELVIC VISCERA: Status post hysterectomy. OSSEOUS STRUCTURES: Degenerative change at L5-S1. CT/CT abdomen pelvis w IV con IMPRESSION: No acute finding.
[2023-12-12 17:22] VITALS: BP 118/74; PULSE 69; RESP 16; TEMP 36.3; O2SAT 99; BMI 28.5
--- NOTE | 2023-12-12 17:22 | ED.GENADULT ---
HPI - General Adult General Chief complaint: Abdominal Pain Stated complaint: left uppper side pain/on and off Time Seen by Provider: 12/12/23 18:10 Source: patient Mode of arrival: ambulatory Limitations: no limitations History of Present Illness ED Provider: Dr. Sofia Liang HPI narrative: patient comes to the emergency room complaining of left upper quadrant pain for couple of days, intermittent. However, today for the last few hours, patient has had constant left upper quadrant pain. Patient denies nausea vomiting or diarrhea. Patient states that earlier today she drank milk of magnesia thinking it may be secondary to constipation. Patient states that yesterday she had greasy meals. She is supposed to follow a gastric sleeve diet. Patient states she had the surgery done in [facility] approximately 2 years ago and has not had any complications from the surgery. Related Data Home Medications ?Medication ?Instructions ?Recorded ?Confirmed cyclobenzaprine 10 mg tablet 1 tab PO DAILY 09/24/20 09/24/20 loratadine 10 mg tablet 10 mg PO DAILY 09/24/20 09/24/20 Previous Rx's ?Medication ?Instructions ?Recorded cefuroxime axetil 500 mg tablet 500 mg PO Q12H #8 tabs 09/27/20 metronidazole 500 mg tablet 500 mg PO Q12H #8 tabs 09/27/20 ondansetron 4 mg disintegrating 4 mg PO Q6H PRN nausea and 09/27/20 tablet vomiting #14 tabs Lactobacillus rhamnosus GG 10 1 cap PO DAILY #10 caps 10/08/20 billion cell capsule (Culturelle) amoxicillin 875 mg-potassium 1 tab PO BID #19 tabs 10/08/20 clavulanate 125 mg tablet (Augmentin) oxycodone 5 mg tablet 5 mg PO Q8H PRN pain #10 tabs 10/08/20 doxycycline hyclate 100 mg tablet 100 mg PO BID #14 tabs 03/04/21 amoxicillin 875 mg-potassium 1 tab PO Q12H 10 days #20 tabs 06/18/21 clavulanate 125 mg tablet (Augmentin) benzonatate 100 mg capsule 200 mg (2 x 100 mg) PO TID PRN 06/18/21 cough #20 caps ondansetron 4 mg disintegrating 4 mg PO Q6-8H PRN nausea and 06/18/21 tablet vomiting #14 tabs oxycodone 5 mg tablet 5 mg PO Q4H PRN pain #14 tabs 06/18/21 albuterol sulfate 90 mcg/actuation 1 inh inhalation QID PRN shortness 11/19/21 aerosol inhaler of breath or wheezing #8.5 grams amoxicillin 875 mg-potassium 1 tab PO BID 14 days #28 tabs 11/19/21 clavulanate 125 mg tablet codeine 10 mg-guaifenesin 100 mg/5 5 ml PO Q6H PRN cold symptoms #120 11/19/21 mL oral liquid (Guaifenesin AC) mL prednisone 20 mg tablet 40 mg (2 x 20 mg) PO DAILY 11/19/21 bronchospasm 5 days #10 tabs hyoscyamine sulfate 0.125 mg tablet 0.125 mg PO QID PRN dyspepsia #10 12/12/23 tabs Allergies Allergy/AdvReac Type Severity Reaction Status Date / Time cephalexin [From Keflex] Allergy Rash Verified 12/12/23 17:24 sulfamethoxazole Allergy Rash Verified 12/12/23 17:24 [From Bactrim] trimethoprim [From Bactrim] Allergy Rash Verified 12/12/23 17:24 Review of Systems Review of Systems: Constitutional : No Weight loss, No Fever, No Chills, No Night Sweats, No Fatigue, No Malaise ENT/Mouth : No Hearing loss, No Ear Pain, No Nasal Congestion, No Sinus Pain, No Hoarseness, No sore throat, No Rhinorrhea, No Swallowing Difficulty Eyes: No Eye Pain, No Swelling, No Redness, No Foreign Body, No Discharge, No Vision Changes Cardiovascular : No Chest Pain, No SOB, No Dyspnea on Exertion, No Orthopnea, No Edema, No Palpitations Respiratory : No Cough, No Sputum, No Wheezing, No Smoke Exposure, No Dyspnea Gastrointestinal : No Nausea, No Vomiting, No Diarrhea, No Constipation, complaining of left upper quadrant discomfort, no hematochezia or melena Genitourinary : no irregular bleeding, No Dysuria, No Urinary Frequency, No Hematuria, No Urinary Incontinence, No Urgency, No Flank Pain, No Urinary Flow Changes, No Hesitancy Musculoskeletal : No joint pain, No Myalgias, No Joint Swelling Skin : No Skin Lesions, No rash Neuro : No Weakness, No Numbness, No Paresthesias, No Loss of Consciousness, No Dizziness, No Headache Psych : No Anxiety/Panic, No Depression, No SI/HI/AH/VH, No Social Issues, Heme/Lymph: No Bruising, No Bleeding,No Lymphadenopathy Endocrine : No Polyuria, No Polydipsia, No Temperature Intolerance [facility] Past Medical History Medical History Obesity Surgical History H/O: hysterectomy Social History Social History Alcohol intake: current Alcohol intake frequency: holidays/special occasions only Comment: pt sleeping Patient Tobacco Use Status: Never used Tobacco Smoked in Last 30 Days: No Use of substances other than those prescribed or required for medical reasons: No Advance Directives: Yes Advance Directives on File: Yes Advance Directives Date on File: 09/30/20 service: No Physical Exam ED Vital Signs: Vital Signs - 24 hr 12/12/23 17:22 12/12/23 17:40 12/12/23 18:06 Temperature 97.4 F 98.0 F 97.9 F Pulse Rate 69 66 63 Respiratory Rate 16 19 18 Blood Pressure 118/74 126/76 118/73 Pulse Oximetry 99 98 98 Oxygen Delivery Method Room Air Room Air Room Air BMI result Body Mass Index 28.5 Const Other: Appearance: Alert. Oriented X3. No acute distress. Eyes: Pupils equal, round and reactive to light. ENT: Pharynx normal. Neck: Normal inspection. Neck supple. No lymph nodes noted. No crepitus CVS: Normal heart rate and rhythm. Pulses normal. Normal S1 and S2 Respiratory: No respiratory distress. Breath sounds normal. No Wheezing. No rales Abdomen: Soft , no significant tenderness to palpation even on the left upper quadrant, no rebound, no guarding, No rigidity. No distention. Skin: Skin warm and dry. Normal skin color. Normal skin turgor. Extremities: No lower extremity edema. No Lacerations. No Rash Neuro: Oriented X 3. No motor deficit. No sensory deficit. Moving all extremities. No slurred speech. CN 2 through 12 grossly intact Psych: calm, cooperative, normal affect Course Course Course Narrative: This is a Rapid Medical Examination (RME) performed by Rey Mcginnis PA-C in triage. Full HPI, ROS, assessment and treatment plan per primary provider in the Main ED. 53 yo female here for eval of LUQ abdominal pain x5 days, becoming constant today. reports associated nausea without vomiting. took zofran ar 1330 today. initially thought it was constipation. took milk of mag yesterday and reports two large BMs today without improvement. reports hx of colitis and states pain feels similar. denies back or flank pain, diarrhea, dysuria, hematuria, fever, chills. well appearing in triage. abdomen is soft, ND/NT, no rebound or guarding. no cvat. Plan: labs, UA +/- imaging per primary provider Medications Administered Discontinued Medications Generic Name Dose Route Start Last Admin Trade Name Homero PRN Reason Stop Dose Admin Iohexol 100 ml 12/12/23 19:35 12/12/23 19:36 Iohexol 350 Mg/Ml 100 Ml Infus..Btl IV 12/12/23 19:36 85 ml ONCE ONE Administration Ondansetron HCl 4 mg 12/12/23 19:46 12/12/23 19:53 Ondansetron Hcl 4 Mg/2 Ml Vial IVPUSH 12/12/23 19:47 4 mg ONCE ONE Administration Medical Decision Making Medical Decision Making [facility] Narrative: - my interpretation of labs: Normal hematology, normal chemistry, normal LFTs - no significant abdominal pain - patient likely having dyspepsia. However, due to her history of gastric band surgery, we will go ahead and order a CT scan - at this time patient states that she feels fairly well, declined any pain pain medication - interpretation of CT scan: No obvious abnormality, gastric sleeve in place Differential Diagnosis Differential Diagnoses: The differential diagnosis associated with the presentation includes ( gastritis, gastroenteritis, musculoskeletal pain, gastric sleeve malfunction) Lab Data [facility] Lab Attestation statement: I reviewed the patient's lab results. 12/12/23 17:33 12/12/23 17:33 Labs: Lab Results 12/12/23 12/12/23 Range/Units 17:33 17:46 WBC 7.9 (4.8-10.8) X10*3/uL RBC 4.52 (4.20-5.50) X10*6/uL Hgb 14.1 (12.0-16.0) g/dl Hct 41.0 (37.0-47.0) % MCV 90.7 (80.0-98.0) fL MCH 31.2 (27.0-33.0) pg MCHC 34.4 (31.0-35.0) g/dl RDW 11.9 (11.0-16.0) % Plt Count 210 (160-400) X10*3/uL MPV 9.7 (9.4-12.3) fL Immature Gran % (Auto) 0.1 (0.0-0.4) % Neut % (Auto) 81.2 H (45-73) % Lymph % (Auto) 11.7 L (20-40) % [place] % (Auto) 5.8 (2-11) % Eos % (Auto) 0.6 (0-4) % Baso % (Auto) 0.6 (0-2) % Lymph # (Auto) 0.9 L (1.2-4.9) X10*3/uL [place] # (Auto) 0.5 (0.1-1.2) X10*3/uL Eos # (Auto) 0.1 (0.0-0.4) X10*3/uL Baso # (Auto) 0.1 (0.0-0.2) X10*3/uL Abs Immat Gran (auto) 0.01 (0.00-0.03) X10*3/uL Absolute Neuts (auto) 6.4 (2.0-8.3) x10*3/uL Absolute Nucleated RBC 0.000 (0.0-0.012) X10*3/uL Nucleated RBC % (auto) 0.0 (0.0-0.2) /100WBC Sodium 141 (135-145) mmol/L Potassium 4.6 (3.3-5.1) mmol/L Chloride 109 H (96-108) mmol/L Carbon Dioxide 24 (22-29) mmol/L Anion Gap 13 (12-20) BUN 13 (9-16) mg/dL Creatinine 0.83 (0.5-1.4) mg/dL Estim Creat Clear Calc 87.6 Estimated GFR > 60 Random Glucose 115 (60-115) mg/dL Calcium 9.5 (8.4-10.2) mg/dL Magnesium 2.1 (1.6-2.6) mg/dL Total Bilirubin 0.4 (0.0-1.0) mg/dL AST 22 (5-31) U/L ALT 27 (0-31) U/L Alkaline Phosphatase 55 (39-117) U/L Total Protein 7.3 (6.5-8.0) g/dL Albumin 4.3 (3.5-5.0) g/dL Lipase 40 (8-78) U/L Urine Color Yellow Urine Appearance Clear Urine pH 6.0 (5.0-9.0) Ur Specific [place] 1.010 (1.005-1.025) Urine Protein Negative (Neg-Trace) mg/dL Urine Glucose (UA) Negative (Negative) mg/dL Urine Ketones Negative (Negative) mg/dL Urine Blood Negative (Negative) Urine Nitrite Negative (Negative) Ur Leukocyte Esterase Trace H (Negative) Urine RBC 0-2 (0-2) /HPF Urine WBC 0-5 (0-5) /HPF Ur Squamous Epith Cells 0-2 (0-2) /HPF Urine Bacteria None Seen (None Seen) Hyaline Casts 0-2 (0-2) /LPF Independent Interpretation I performed an independent interpretation of an: CT Scan Radiology Impression Discussion of test interpretation with radiology: I have reviewed the radiologist's reading. Radiologist Impression: FINDINGS: LUNG BASES: The lung bases appear clear, with no evidence of inflammation or nodules. Trace pericardial fluid. LIVER, GALLBLADDER, AND BILIARY TREE: The liver appears unremarkable in size, shape, and attenuation. No focal hepatic lesion or biliary ductal dilatation is appreciated. Unremarkable appearance of the gallbladder. PANCREAS: Unremarkable SPLEEN: Unremarkable ADRENAL GLANDS: Unremarkable KIDNEYS AND URETERS: The kidneys appear unremarkable in size, shape, and attenuation. No hydronephrosis, hydroureter, or calculi seen. BLADDER: Unremarkable GASTROINTESTINAL TRACT: Evidence of gastric sleeve surgery. The small and large bowel appear unremarkable. ABDOMINAL WALL: No significant hernia is appreciated. LYMPH NODES: No evidence of adenopathy by size criteria. VASCULAR: Unremarkable PELVIC VISCERA: Status post hysterectomy. OSSEOUS STRUCTURES: Degenerative change at L5-S1. CT/CT abdomen pelvis w IV con IMPRESSION: No acute finding Discharge Plan Discharge Clinical Impression: Abdominal pain Patient Disposition: Home, Self-Care Instructions: Abdominal Pain (ED) Additional Instructions: Please follow-up with your primary care physician tomorrow. If you have any worsening or new symptoms, please return to the emergency room or call 911 Prescriptions: New hyoscyamine sulfate 0.125 mg tablet 0.125 mg PO QID PRN (Reason: dyspepsia) Qty: 10 0RF No Action amoxicillin-pot clavulanate [Augmentin] 875-125 mg tablet 1 tab PO BID Qty: 19 0RF oxycodone 5 mg tablet 5 mg PO Q8H PRN (Reason: pain) Qty: 10 0RF Culturelle 10 billion cell capsule 1 cap PO DAILY Qty: 10 0RF doxycycline hyclate 100 mg tablet 100 mg PO BID Qty: 14 0RF cyclobenzaprine 10 mg tablet 1 tab PO DAILY loratadine 10 mg Tablet 10 mg PO DAILY metronidazole 500 mg Tablet 500 mg PO Q12H Qty: 8 0RF cefuroxime axetil 500 mg tablet 500 mg PO Q12H Qty: 8 0RF ondansetron 4 mg tablet,disintegrating 4 mg PO Q6H PRN (Reason: nausea and vomiting) Qty: 14 0RF amoxicillin-pot clavulanate [Augmentin] 875-125 mg tablet 1 tab PO Q12H 10 Days Qty: 20 0RF ondansetron 4 mg tablet,disintegrating 4 mg PO Q6-8H PRN (Reason: nausea and vomiting) Qty: 14 0RF oxycodone 5 mg tablet 5 mg PO Q4H PRN (Reason: pain) Qty: 14 0RF Rx Instructions: Patient may request partial fill benzonatate 100 mg capsule 200 mg PO TID PRN (Reason: cough) Qty: 20 0RF amoxicillin-pot clavulanate 875-125 mg tablet 1 tab PO BID 14 Days Qty: 28 0RF prednisone 20 mg tablet 40 mg PO DAILY 5 Days Qty: 10 0RF albuterol sulfate 90 mcg/actuation HFA aerosol inhaler 1 inh inhalation QID PRN (Reason: shortness of breath or wheezing) Qty: 8.5 0RF codeine-guaifenesin [Guaifenesin AC] 10-100 mg/5 mL liquid 5 ml PO Q6H PRN (Reason: cold symptoms) Qty: 120 0RF Print Language: Yi
[2023-12-12 17:37] LABS: MANUAL DIFF FLAG NO
[2023-12-12 17:40] VITALS: BP 126/76; PULSE 66; RESP 19; TEMP 36.7; O2SAT 98
[2023-12-12 17:52] LABS: Alanine Aminotransferase 27 U/L (0-31); Albumin Level 4.3 g/dL (3.5-5.0); Alkaline Phosphatase 55 U/L (39-117); Anion Gap 13 (12-20); Aspartate Amino Transferase 22 U/L (5-31); Bilirubin Total 0.4 mg/dL (0.0-1.0); Blood Urea Nitrogen 13 mg/dL (9-16); Calcium 9.5 mg/dL (8.4-10.2); Carbon Dioxide 24 mmol/L (22-29); Chloride 109 mmol/L (96-108); Creatinine Clr Calc Pharmacy 87.6; Estimated Glomerular Filt Rate > 60; Glucose Random 115 mg/dL (60-115); Lipase 40 U/L (8-78); Magnesium 2.1 mg/dL (1.6-2.6); Potassium 4.6 mmol/L (3.3-5.1); Sodium 141 mmol/L (135-145); Total Protein 7.3 g/dL (6.5-8.0)
[2023-12-12 17:54] LABS: Basophils Absolute Auto 0.1 X10*3/uL (0.0-0.2); Basophils Percent Auto 0.6 % (0-2); Eosinophils Absolute Auto 0.1 X10*3/uL (0.0-0.4); Eosinophils Percent Auto 0.6 % (0-4); Hemoglobin 14.1 g/dl (12.0-16.0); Imm Gran Abs Auto 0.01 X10*3/uL (0.00-0.03); Imm Gran Pct Auto 0.1 % (0.0-0.4); Lymphocytes Absolute Auto 0.9 X10*3/uL (1.2-4.9); Lymphocytes Percent Auto 11.7 % (20-40); Mean Corpuscular HGB Conc 34.4 g/dl (31.0-35.0); Mean Corpuscular Hemoglobin 31.2 pg (27.0-33.0); Mean Corpuscular Volume 90.7 fL (80.0-98.0); Mean Platelet Volume 9.7 fL (9.4-12.3); Monocytes Absolute Auto 0.5 X10*3/uL (0.1-1.2); Monocytes Percent Auto 5.8 % (2-11); Neutrophils Absolute Auto 6.4 x10*3/uL (2.0-8.3); Neutrophils Percent Auto 81.2 % (45-73); Platelet Count 210 X10*3/uL (160-400); Red Blood Count 4.52 X10*6/uL (4.20-5.50); Red Cell Distribution Width 11.9 % (11.0-16.0); White Blood Count 7.9 X10*3/uL (4.8-10.8)
[2023-12-12 17:56] LABS: Appearance Urine Clear; Color Urine Yellow; Glucose Urine UA Negative (Negative); Leukocyte Esterase Urine Trace (Negative); Nitrite Urine Negative (Negative); UMIC TRIGGER UACC YES; Urine Blood Negative (Negative); Urine Ketones Negative (Negative); Urine Protein Negative (Neg-Trace)
[2023-12-12 18:01] LABS: Bacteria Urine None Seen (None Seen); Hyaline Casts Urine 0-2 /LPF (0-2); RBC Urine 0-2 /HPF (0-2); Squamous Epithelial Cell Urine 0-2 /HPF (0-2); WBC Urine 0-5 /HPF (0-5)
[2023-12-12 18:06] VITALS: BP 118/73; PULSE 63; RESP 18; TEMP 36.6; O2SAT 98
[2023-12-12] MEDS: iohexoL 350 MG/ML 100 ML INFUS..BTL IV (19:36)
[2023-12-12] MEDS: ondansetron HCL 4 MG/2 ML VIAL IVPUSH (19:53)
[2023-12-12 21:21] VITALS: BP 124/84; PULSE 68; RESP 16; TEMP 36.8; O2SAT 98
== END 2023-12-12 21:22 | disposition home or self-care (01) ==
PROVIDERS: Physician Assistant Medical; Emergency Provider Emergency Medicine; PCP Internal Medicine
DX: R10.12 Left upper quadrant pain (principal); Z98.84 Bariatric surgery status
CPT/HCPCS: 36415; 74177; 80053; 81001; 83690; 83735; 85025; 96374; 99284; J2405; Q9967

== ENCOUNTER 2024-01-05 12:19 | Day surgery (SDC) | payer OTHER, SELFPAY ==
--- NOTE | 2024-01-03 13:27 | HO.ANESPROP2 ---
Documented by User: Skylar Gifford NP 01/03/24 13:27 HPI - Anesthesia Eval Consult details Narrative: 53yo F for Upper Endoscopy PMFSH Active Problems Active Problems: All Active Problems COVID-19 (Acute) Colitis (Acute) Past Medical History Medical History (Updated 01/05/24 @ 14:14 by Carol Nguyen MD) COVID Brain aneurysm Obesity Surgical History Surgical History (Updated 01/05/24 @ 14:10 by Carol Nguyen MD) History of sleeve gastrectomy H/O: hysterectomy Social History Social History Alcohol intake: current Alcohol intake frequency: holidays/special occasions only Comment: pt sleeping Patient Tobacco Use Status: Never used Tobacco Are you DNR?: No Advance Directives: No Advance Directives Information Provided: Yes Advance Directives Date on File: 09/30/20 service: No Meds Allergies Allergy/AdvReac Type Severity Reaction Status Date / Time cephalexin [From Keflex] Allergy Rash Verified 01/05/24 13:47 sulfamethoxazole Allergy Rash Verified 01/05/24 13:47 [From Bactrim] trimethoprim [From Bactrim] Allergy Rash Verified 01/05/24 13:47 Home Medications ?Medication ?Instructions ?Recorded ?Confirmed ?Last Taken ?Type loratadine 10 mg tablet 10 mg PO DAILY 09/24/20 01/05/24 01/05/24 History aspirin 81 mg tablet,delayed 81 mg PO DAILY 01/05/24 01/05/24 01/05/24 History release clopidogrel 75 mg tablet 75 mg PO DAILY 01/05/24 01/05/24 12/31/23 History Assessment and Plan Assessment Anesthesia Assessment: Chart Reviewed Documented by User: Carol Nguyen MD 01/05/24 14:15 PMFSH Active Problems Active Problems: All Active Problems Colitis (Acute) Internal carotid aneurysms- stented 08/2023 @ [facility]. On Plavix and Baby Aspirin. Was told not to stop aspirin. Last dose of Plavix 12/01/23 Abdominal pain Past Medical History Medical History (Updated 01/05/24 @ 14:14 by Carol Nguyen MD) COVID Brain aneurysm Obesity Family History Family history of problems with anesthesia: No Surgical History Surgical History (Updated 01/05/24 @ 14:10 by Carol Nguyen MD) History of sleeve gastrectomy H/O: hysterectomy History of Problems with Anesthesia: No Social History Social History Alcohol intake: current Alcohol intake frequency: holidays/special occasions only Comment: pt sleeping Patient Tobacco Use Status: Never used Tobacco Are you DNR?: No Advance Directives: No Advance Directives Information Provided: Yes Advance Directives Date on File: 09/30/20 service: No Meds Allergies Allergy/AdvReac Type Severity Reaction Status Date / Time cephalexin [From Keflex] Allergy Rash Verified 01/05/24 13:47 sulfamethoxazole Allergy Rash Verified 01/05/24 13:47 [From Bactrim] trimethoprim [From Bactrim] Allergy Rash Verified 01/05/24 13:47 Home Medications ?Medication ?Instructions ?Recorded ?Confirmed ?Last Taken ?Type loratadine 10 mg tablet 10 mg PO DAILY 09/24/20 01/05/24 01/05/24 History aspirin 81 mg tablet,delayed 81 mg PO DAILY 01/05/24 01/05/24 01/05/24 History release clopidogrel 75 mg tablet 75 mg PO DAILY 01/05/24 01/05/24 12/31/23 History Exam Height,Weight and Vital Signs: Height 5 ft 8 in Weight 84.368 kg Vital Signs Temp Pulse Resp BP Pulse Ox O2 Del Method 01/05/24 14:10 97.4 F 62 16 119/73 98 Room Air Airway Mallampati Class: II TM Dist: >3cm Neck ROM: Full Loose/Missing/Broken Teeth: No (Denies broken, loose, missing teeth) Heart: RRR Lungs: CTAB Assessment and Plan Assessment Anesthesia Assessment: Anesthesia Plan Discussed and Chart Reviewed Final Anesthetic Review Family History of Problems with Anesthesia: No History of Problems with Anesthesia: No NPO: Yes ASA Class: III Final Preanesthetic Review: No Changes in Pt Med Stat, Meds/Allgs Chart Reviewed, Consent Obtained/Reviewed and Anes Risks/Benef Reviewed Patient Risk: Intermediate Procedure Risk: Low Assessment/Block/Sedation in SS: Assess/Block/Sedation-SS Anesthetic Plan Anesthetic Plan: TIVA Disposition: Standard PACU
[2024-01-05 13:42] VITALS: BMI 28.3
[2024-01-05 14:10] VITALS: BP 119/73; PULSE 62; RESP 16; TEMP 36.3; O2SAT 98
[2024-01-05] MEDS: Lactated Ringers 1,000 ML 80 ML IVCONT (14:11)
--- NOTE | 2024-01-05 14:23 | P.HPSUR_ITS ---
Pre-Procedural Eval Section A - 24 Hr Update-Section A only Date of Service: 01/05/24 The patient is an INPATIENT: No The patient has been examined within 24 hours of the surgical procedure. The History & Physical has been completed within 30 days and I have reviewed it.: Yes Section B - Complete if H&P > 30 days Chief Complaint: Bariatric surgery status Details of Present Illness: LUQ abdominal pain Relevant Family History (Specify if Yes): No Relevant Social History: None Present Medications: None Medical History: No relevant PMH History of Previous Operations: Relevant previous surgery/procedure and date(s) (Lap sleeve gastrectomy in [place]) Allergies: Allergies Allergy/AdvReac Type Severity Reaction Status Date / Time cephalexin [From Keflex] Allergy Rash Verified 01/05/24 13:47 sulfamethoxazole Allergy Rash Verified 01/05/24 13:47 [From Bactrim] trimethoprim [From Bactrim] Allergy Rash Verified 01/05/24 13:47 Review of Systems Sugical H&P ROS: Negative: Constitution, Cardiovascular, Respiratory, Neurological, Psychiatric, Hem-Onc, Allergic/Immunologic, Gastrointestinal, Genitourinary, Musculoskeletal, Integumentary, Endocrine and Eyes/Ears/Nose/Throat Exam Surgical H&P Exam: Normal: HEENT, Normal: Heart, Normal: Lungs, Normal: Extremities, Normal: Abdomen, Normal: Skin and Normal: Neurological Plan Diagnosis/Plan: Unchanged (EGD to assess etiology of the abdominal pain in relation to the sleeve gastrectomy. Risks of bleeding and perforation were dis cussed with the patient and she is in agreement with the plan.) I have reviewed the history and physical and performed a pertinent physical examination on my patient. No changes have occurred unless specified. Time Spent With Patient Time: Total time managing care of this patient today ____ minutes.
--- NOTE | 2024-01-05 14:27 | P.BOP_ITS ---
Brief Operative Note Date of Service: 01/05/24 Pre-op diagnosis: Left upper quadrant abdominal pain, s/p sleeve gastrectomy Post-op diagnosis: same Procedure: PROCEDURE DATE: 01/05/2024 PREOPERATIVE DIAGNOSIS: Left upper quadrant abdominal pain, s/p sleeve gastrectomy POSTOPERATIVE DIAGNOSIS: ?Same as above. 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 Ph.D. Environmental Engineering Manager: None ? Anesthesia: IV sedation Estimated blood loss: ?Minimal FINDINGS AND PROCEDURE: ? OPERATIVE INDICATIONS: ?The patient is a 53 year old female known to me who underwent a laparoscopic sleeve gastrectomy in [place]. The patient had remarkable weight loss so far and had a completely uneventful recovery.? The patient was doing very well but the last 2 months since she was placed on aspirin, she has been complaining of left upper quadrant pain. In addition, a CT-abdomen she had in the ER showed a dilated sleeve. Based on this information I recommended an upper endoscopy to evaluate the patient's symptoms. Risks and complications of the surgery were discussed with the patient in advance particularly the possibility of perforation or bleeding that may require surgical intervention. The patient understood the risks and was in agreement with the plan. ? PROCEDURE: After informed consent was obtained by the patient, the patient was ?transferred to the Operating Room and was placed in the supine position.? After successful induction of IV sedation, a mouth block was inserted and the patient was placed in the left lateral decubitus position. An upper endoscopy was performed next, the oropharynx and esophagus appeared within the normal limits. There was a 2cm hiatal hernia. The z-line was smooth. Two biopsies were obtained from the distal esophagus 2-3 cm proximal to the GE junction and two additional biopsies from the GE junction. The sleeve was entered. There was moderate size proximal redundancy. The sleeve's caliber was large. Although the scope could easily pas through, there was a functional narrowing at the incisura angularis with a significant discrepancy in the caliber of the sleeve there.. There was mild gastritis at distal antrum. There was no stricture or ulcer. Biopsies were obtained from the proximal sleeve as well as the distal antrum. No significant bleeding was noted from any of the biopsy sites. The scope was then advanced into the duodenum all the way to the 4th portion, which appeared to be normal. No ulcers were seen.. At that point the duodenum ?and the sleeve were decompressed and the scope was withdrawn from the patient's mouth. The patient extubated and was transferred in stable condition to the Recovery Room for further care. I was present and performed all steps of the procedure. There were no residents to assist with this case. Lexa Lisa M.D., Ph.D. Surgeon: Gilberto Lisa MD Anesthesia: MAC Was an Environmental Engineering Manager used for this Procedure?: No Estimated blood loss (mL): 0 IV fluids (mL): 400 Urine output (mL): 0 (No Connelly to record output) Pathology: other (1) antrum x1, 2) fundus x1, 3) GE junction x2, 4) distal esophagus x2) Condition: stable Disposition: PACU
[2024-01-05 15:07] VITALS: BP 127/74; PULSE 86; RESP 12; TEMP 36.4; O2SAT 98
[2024-01-05 15:21] VITALS: BP 119/72; PULSE 73; RESP 16; O2SAT 98
[2024-01-05 15:35] VITALS: BP 122/73; PULSE 65; RESP 16; O2SAT 98
[2024-01-05 16:00] VITALS: BP 122/73; PULSE 65; RESP 16; TEMP 36.4; O2SAT 98
== END 2024-01-05 16:18 | disposition home or self-care (01) ==
PROVIDERS: PCP Internal Medicine; Visit Provider Surgery
PROC: 0DJ08ZZ Inspection of Upper Intestinal Tract, Via Natural or Artificial Opening Endoscopic (ICD-10-PCS; CPT 43235; principal; 2024-01-05 15:10)
DX: K95.89 Other complications of other bariatric procedure (principal); R10.12 Left upper quadrant pain; K29.50 Unspecified chronic gastritis without bleeding; K44.9 Diaphragmatic hernia without obstruction or gangrene; Z98.84 Bariatric surgery status; Z90.3 Acquired absence of stomach [part of]; Z88.1 Allergy status to other antibiotic agents; Z88.2 Allergy status to sulfonamides
CPT/HCPCS: 43239; 88305; 88313; 88342; J1596; J2250; J2704

== ENCOUNTER → 2024-01-05 12:19 | Outpatient (BNV) | payer OTHER, SELFPAY | PROVIDERS: PCP Internal Medicine; Visit Provider Surgery | DX: R10.12 Left upper quadrant pain (principal); K44.9 Diaphragmatic hernia without obstruction or gangrene; K95.89 Other complications of other bariatric procedure; Z98.84 Bariatric surgery status | CPT/HCPCS: 43239 ==

== ENCOUNTER 2024-01-20 09:05 | Outpatient (AMB) | payer OTHER, SELFPAY ==
--- NOTE | 2024-01-20 09:51 | AM.OFFWIN_ITS ---
Intake Vital Signs 01/20/24 09:52 Height 5 ft 8 in Weight 193 lb BMI 29.3 BP 120/82 Blood Pressure Location Lt brachial Position Sitting Pulse 63 Pulse Source Pulse Oximeter Temp 98.4 F Temp Source Oral Pulse Oximetry (%) 96 Oxygen Delivery Method Room Air Intake Visit Reasons: possible uti Intake Note: pt here c/o possible UTI. Urinary urgency, frequency and discomfort. Started Wednesday Patient Tobacco Use Status: Never used Tobacco Allergies cephalexin [From Keflex] Allergy (Verified 01/20/24 10:04) Rash sulfamethoxazole [From Bactrim] Allergy (Verified 01/20/24 10:04) Rash trimethoprim [From Bactrim] Allergy (Verified 01/20/24 10:04) Rash Do you need a note to return to daycare/school/sports/work: Yes HPI HPI Comments History of Present Illness Details Patient is a 53-year-old female complaining of 2 days of increased frequency, pressure in her bladder area. She denies any fevers, blood in her urine, back pain or history of kidney stones. [facility] Medical History (Updated 01/20/24 @ 10:26 by Sandra Alcala PA-C) COVID Brain aneurysm Obesity Surgical History (Updated 01/05/24 @ 14:10 by Carol Nguyen MD) History of sleeve gastrectomy H/O: hysterectomy Social History Alcohol intake: current Alcohol intake frequency: holidays/special occasions only Comment: pt sleeping Patient Tobacco Use Status: Never used Tobacco Advance Directives Date on File: 09/30/20 service: No Review of Systems Const All systems reviewed & are unremarkable except as noted in HPI and below Physical Exam Vital Signs: Last Vital Signs Temp 98.4 F 01/20/24 09:52 Pulse 63 01/20/24 09:52 BP 120/82 01/20/24 09:52 Pulse Ox 96 01/20/24 09:52 Oxygen Delivery Method Room Air 01/20/24 09:52 BMI result Body Mass Index 29.3 Const General: cooperative, healthy appearing, comfortable, no acute distress and well developed Orientation/consciousness: patient oriented x3 Limitations: no limitations HEENT Head: Yes normal to inspection Eyes General: appearance normal, both eyes and all related structures Neck Neck: Yes normal visual inspection and Yes full ROM Resp Effort & Inspection: normal respiratory effort and able to speak in complete sentences Skin General skin exam: no rashes or lesions noted Neuro General: patient oriented x3 Extrem General: Yes normal to inspection Results AMB Urinalysis, Automated UA Leukoctes 125 Sakina/uL Last Edit by Adam Ayon CMA on 01/20/24 10:17 UA Nitrite Positive Last Edit by Adam Ayon CMA on 01/20/24 10:17 UA Urobilinogen 4 mg/dL Last Edit by Adam Ayon CMA on 01/20/24 10:17 UA Protein 0 mg/dL Last Edit by Adam Ayon CMA on 01/20/24 10:17 UA pH 7.0 Last Edit by Adam Ayon CMA on 01/20/24 10:17 UA Blood 0 Ramos/uL Last Edit by Adam Ayon CMA on 01/20/24 10:17 UA Specific [place] 1.015 Last Edit by Adam Ayon CMA on 01/20/24 10:17 UA Ketone Negative Last Edit by Adam Ayon CMA on 01/20/24 10:17 UA Bilirubin 2 mg/dL Last Edit by Adam Ayon CMA on 01/20/24 10:17 UA Glucose 0 mg/dL Last Edit by Adam Ayon CMA on 01/20/24 10:17 Results Reviewed Results Reviewed: Laboratory Last Values Urine pH (Auto) 7.0 01/20/24 10:14 Specific [place] (Auto) 1.015 01/20/24 10:14 Urine Protein (Auto) 0 mg/dL 01/20/24 10:14 Glucose (UA)(Auto) 0 mg/dL 01/20/24 10:14 Urine Ketones (Auto) Negative 01/20/24 10:14 Urine Blood (Auto) 0 Ramos/uL 01/20/24 10:14 Urine Nitrite (Auto) Positive 01/20/24 10:14 Urine Bilirubin (Auto) 2 mg/dL 01/20/24 10:14 Urine Urobilinogen (Auto) 4 mg/dL 01/20/24 10:14 Leukocyte Esterase (Auto) 125 Sakina/uL 01/20/24 10:14 Assessment & Plan Assessment & Plan (1) UTI (urinary tract infection): Code(s): N39.0 - Urinary tract infection, site not specified Qualifiers: Urinary tract infection type: acute cystitis Hematuria presence: without hematuria Qualified Code(s): N30.00 - Acute cystitis without hematuria Plan: Send prescription for Macrobid. Plan See above Orders: Orders AMB Urinalysis Automated Today Z13.9 - Encounter for screening, unspecified Medications: New nitrofurantoin monohyd/m-cryst 100 mg (Macrobid) must administer with a meal/food 100 mg PO Q12H 5 days 10 caps 0RF Coding Level of Care Code New Pt Level 3 (48333) Diagnoses Acute cystitis without hematuria N30.00 Urinary tract infection type: acute cystitis Hematuria presence: without hematuria
[2024-01-20 09:52] VITALS: BP 120/82; PULSE 63; TEMP 36.9; O2SAT 96; BMI 29.3
== END 2024-01-20 10:45 | disposition home or self-care (01) ==
PROVIDERS: PCP Internal Medicine; Visit Provider Physician Assistant
DX: Z13.9 Encounter for screening, unspecified (principal); N30.00 Acute cystitis without hematuria
CPT/HCPCS: 81003; 99203

== ENCOUNTER 2024-01-20 12:38 | Emergency (ER) | payer OTHER, SELFPAY ==
[2024-01-20 12:48] VITALS: BP 146/83; PULSE 77; RESP 18; TEMP 36.6; O2SAT 95; BMI 30.4
--- NOTE | 2024-01-20 12:53 | ECG_ITS ---
Test Reason : DIZZINESS Blood Pressure : / mmHG Vent. Rate : 071 BPM Atrial Rate : 071 BPM P-R Int : 162 ms QRS Dur : 084 ms QT Int : 388 ms P-R-T Axes : 030 072 048 degrees QTc Int : 421 ms Normal sinus rhythm with sinus arrhythmia Normal ECG No previous ECGs available Referred By: Gilma Medrano Electronically Signed By:ILIANA TIDWELL
--- NOTE | 2024-01-20 12:56 | ED.ALLEREA ---
HPI - Allergic Reaction General Chief complaint: Allergic Reaction Stated complaint: allergic reaction ? Time Seen by Provider: 01/20/24 12:42 Source: patient and other (staff memeber/ friend ) Mode of arrival: ambulatory Limitations: no limitations History of Present Illness ED Provider: Tino MEIER HPI narrative: This is a 53-year-old female history of obesity s/p lap sleeve gastrectomy, brain aneurysm, esophagitis, currently being treated for UTI with Macrobid presenting to the emergency department with overall feeling warm, dizzy, this all started after taking Macrobid at approximately noon, she reports she just feeling overall unwell. She does not know if she has a rash she does not think so. Denies difficulty breathing, chest pain, nausea, vomiting, abdominal pain, headache, vision changes, weakness. Related Data Home Medications ?Medication ?Instructions ?Recorded ?Confirmed loratadine 10 mg tablet 10 mg PO DAILY 09/24/20 01/05/24 aspirin 81 mg tablet,delayed 81 mg PO DAILY 01/05/24 01/05/24 release clopidogrel 75 mg tablet 75 mg PO DAILY 01/05/24 01/05/24 cyclobenzaprine 10 mg tablet 10 mg PO TID PRN muscle spasm 01/20/24 magnesium 250 mg tablet 250 mg PO DAILY 01/20/24 sumatriptan succinate 50 mg tablet mg PO 01/20/24 Previous Rx's ?Medication ?Instructions ?Recorded ondansetron 4 mg disintegrating 4 mg PO Q6-8H PRN nausea and 06/18/21 tablet vomiting #14 tabs pantoprazole 40 mg tablet,delayed 40 mg PO DAILY #90 tabs 01/06/24 release diphenhydramine HCl 25 mg capsule 50 mg (2 x 25 mg) PO TID PRN 01/20/24 (Benadryl) allergic reaction #20 caps epinephrine 0.3 mg/0.3 mL 0.3 mg (0.3 mL) IM Q4H PRN 01/20/24 injection, auto-injector (EpiPen anaphylaxis #2 ea 2-Neptali) levofloxacin 750 mg tablet 750 mg PO DAILY 5 days #5 tabs 01/20/24 nitrofurantoin 100 mg PO Q12H 5 days #10 caps 01/20/24 monohydrate/macrocrystals 100 mg capsule (Macrobid) prednisone 20 mg tablet 20 mg PO DAILY 5 days #5 tabs 01/20/24 Allergies Allergy/AdvReac Type Severity Reaction Status Date / Time nitrofurantoin Allergy Intermediate Rash Unverified 01/20/24 12:49 [From Macrobid] cephalexin [From Keflex] Allergy Rash Verified 01/20/24 12:49 sulfamethoxazole Allergy Rash Verified 01/20/24 12:49 [From Bactrim] trimethoprim [From Bactrim] Allergy Rash Verified 01/20/24 12:49 Review of Systems Review of Systems: Yes all other systems are reviewed and are negative [facility], [facility] Past Medical History Attestation statement: The following information was validated with the patient. Source: old records reviewed and nursing notes reviewed Medical History (Updated 01/20/24 @ 13:48 by ALEX More) COVID Brain aneurysm Obesity Surgical History (Updated 01/05/24 @ 14:10 by Carol Nguyen MD) History of sleeve gastrectomy H/O: hysterectomy Social History Social History Alcohol intake: current Alcohol intake frequency: holidays/special occasions only Comment: pt sleeping Patient Tobacco Use Status: Never used Tobacco Advance Directives: Yes Advance Directives on File: Yes Advance Directives Date on File: 09/30/20 Do you have a plan to hurt others: No Plan service: No Physical Exam ED Vital Signs: Vital Signs - 24 hr 01/20/24 12:48 Temperature 97.9 F Pulse Rate 77 Respiratory Rate 18 Blood Pressure 146/83 H Pulse Oximetry 95 Oxygen Delivery Method Room Air BMI result Body Mass Index 30.4 vss Appearance: Alert.? Oriented X3.? No acute distress.? Head: Normocephalic, atraumatic, no step-offs or deformities Eyes: Pupils equal, round and reactive to light.? ENT: Pharynx normal.? Airway patent. Uvula midline. No edema in the mouth, tongue, lips, hard or soft palate. Speaking in full sentences controlling secretions well Neck: Normal inspection.? Neck supple.? CVS: Normal heart rate and rhythm.? Pulses normal.? Respiratory: No respiratory distress.? Breath sounds normal.? Abdomen: Soft and nontender.? Skin: Skin warm and dry.? Normal skin color.? Normal skin turgor.? + maculopapular rash to the right flank and left flank region, R>L. Extremities: No lower extremity edema.? No calf ttp. 5/5 strength to bilateral upper and lower extremities Neuro: Oriented X 3.? No motor deficit.? No sensory deficit. CN 2-12 intact Course Reevaluation(s) Reevaluation #1: CBC unremarkable. Chemistry no acute findings requiring intervention. Trop negative non ischemic EKG. No CP or SOB feeling much better. Rash improved. UA negative. Plan dc home with epipen, prednisone, benadryl and levofloxacin. Time: 14:21 Medications Administered Discontinued Medications Generic Name Dose Route Start Last Admin Trade Name Freq PRN Reason Stop Dose Admin Diphenhydramine HCl 50 mg 01/20/24 12:52 01/20/24 13:01 Diphenhydramine Hcl 50 Mg/Ml Vial IVPUSH 01/20/24 12:53 50 mg ONCE ONE Administration Methylprednisolone Sodium Succinate 125 mg 01/20/24 12:52 01/20/24 13:01 Methylprednisolone Sod Succ 125 Mg/2 Ml Vial IVPUSH 01/20/24 12:53 125 mg ONCE ONE Administration Medical Decision Making Medical Decision Making [facility] Narrative: 53-year-old female presents with fatigue, malaise, dizziness, feeling hot all of which started suddenly after taking Macrobid. According [facility] with [facility] tract infection and discharged with UTI at approximately noon patient took pills for UTI and the symptoms started shortly after. Physical exam slight maculopapular rash to the flank region bilaterally right greater than left. Patent airway. Neurovascularly intact. History and physical exam concerning for allergic reaction/adverse reaction. Unlikely anaphylaxis. Unlikely ACS, PE, dissection. No signs of acute respiratory distress. Unlikely metabolic derangement Plan labs, urine Differential Diagnosis Differential Diagnoses: The differential diagnosis associated with the presentation includes History and physical exam concerning for allergic reaction/adverse reaction. Unlikely anaphylaxis. Unlikely ACS, PE, dissection. No signs of acute respiratory distress. Unlikely metabolic derangement Admission/Observation Consideration of admission/observation: Escalation of care including admission/observation considered possible Lab Data [facility] Lab Attestation statement: I reviewed the patient's lab results. 01/20/24 12:56 01/20/24 12:56 Labs: Lab Results 07/25/24 Range/Units 12:56 WBC 5.7 (4.8-10.8) X10*3/uL RBC 4.28 (4.20-5.50) X10*6/uL Hgb 13.3 (12.0-16.0) g/dl Hct 38.9 (37.0-47.0) % MCV 90.9 (80.0-98.0) fL MCH 31.1 (27.0-33.0) pg MCHC 34.2 (31.0-35.0) g/dl RDW 11.9 (11.0-16.0) % Plt Count 211 (160-400) X10*3/uL MPV 9.4 (9.4-12.3) fL Immature Gran % (Auto) 0.2 (0.0-0.4) % Neut % (Auto) 60.7 (45-73) % Lymph % (Auto) 30.5 (20-40) % Stark % (Auto) 7.2 (2-11) % Eos % (Auto) 0.7 (0-4) % Baso % (Auto) 0.7 (0-2) % Lymph # (Auto) 1.7 (1.2-4.9) X10*3/uL Stark # (Auto) 0.4 (0.1-1.2) X10*3/uL Eos # (Auto) 0.0 (0.0-0.4) X10*3/uL Baso # (Auto) 0.0 (0.0-0.2) X10*3/uL Abs Immat Gran (auto) 0.01 (0.00-0.03) X10*3/uL Absolute Neuts (auto) 3.4 (2.0-8.3) x10*3/uL Absolute Nucleated RBC 0.000 (0.0-0.012) X10*3/uL Nucleated RBC % (auto) 0.0 (0.0-0.2) /100WBC PT 11.0 L (11.1-13.3) SEC INR 0.9 (0.9-1.1) Sodium 141 (135-145) mmol/L Potassium 4.2 (3.3-5.1) mmol/L Chloride 109 H (96-108) mmol/L Carbon Dioxide 22 (22-29) mmol/L Anion Gap 14 (12-20) BUN 24 H (9-16) mg/dL Creatinine 0.84 (0.5-1.4) mg/dL Estim Creat Clear Calc 89.2 Estimated GFR > 60 Random Glucose 87 (60-115) mg/dL Calcium 9.8 (8.4-10.2) mg/dL Magnesium 1.9 (1.6-2.6) mg/dL Total Bilirubin 0.4 (0.0-1.0) mg/dL AST 23 (5-31) U/L ALT 24 (0-31) U/L Alkaline Phosphatase 70 (39-117) U/L Troponin I High Sens < 2.7 (<3.5-17.0) ng/L Total Protein 7.5 (6.5-8.0) g/dL Albumin 4.4 (3.5-5.0) g/dL Independent Interpretation I performed an independent interpretation of an: EKG (Vent. Rate : 071 BPM Atrial Rate : 071 BPM P-R Int : 162 ms QRS Dur : 084 ms QT Int : 388 ms P-R-T Axes : 030 072 048 degrees QTc Int : 421 ms Normal sinus rhythm with sinus arrhythmia Normal ECG No previous ECGs available ) Independent Historian Clinical information obtained from an independent historian. History obtained from or confirmed by: Friend External Record Review External record reviewed: Inpatient record, Office record, Outpatient record, Prior outpatient labs, Prior outpatient radiology, Primary care record and Outside ED record Critical Care Time Critical Care Time Critical Care Time: No Discharge Plan Discharge Clinical Impression: UTI (urinary tract infection), Allergic reaction Patient Disposition: Home, Self-Care Instructions: Urinary Tract Infection in Women (ED), Allergy Testing (ED) Additional Instructions: Take your medications as prescribed. If you were prescribed antibiotics today, it is important that you take your medication to their entirety, do not skip any doses, do not finish them early. Follow-up with your primary care provider this week. Return to the emergency department with new or worsening symptoms. Such as fevers, chills, chest pain, shortness of breath, nausea, vomiting, dizziness, headache, vision changes, lethargy In case of emergency call 911 Follow up with allergy and immunology How to use an EpiPen: ? Place the orange tip against the middle of the outer thigh. ? Swing and push the auto-injector firmly into the thigh until it ?clicks? ? Hold firmly in place for three seconds?count slowly, ?1, 2, 3? An EpiPen has been sent to your pharmacy this should only be used in severe emergency such as inability to breathe trouble speaking, shortness breath or any signs of anaphylaxis as discussed. If he use an EpiPen it is crucial you come in to an emergency department to be evaluated as you can have a rebound effect. Please follow-up with an allergy doctor. Levofloxacin has been selected for UTI due to your list of allergies Fluoroquinolones have been associated with disabling and potentially irreversible serious adverse reactions that have occurred together, including tendinitis and tendon rupture, peripheral neuropathy, and LEAD SYSTEMS DEVELOPER effects. Discontinue levofloxacin immediately and avoid the use of fluoroquinolones in patients who experience any of these serious adverse reactions. Because fluoroquinolones have been associated with serious adverse reactions, reserve levofloxacin for use in patients who have no alternative treatment options for the following indications: uncomplicated urinary tract infection, acute bacterial exacerbation of chronic bronchitis, and acute bacterial sinusitis. Prescriptions: New levofloxacin 750 mg tablet 750 mg PO DAILY 5 Days Qty: 5 0RF diphenhydramine HCl [Benadryl] 25 mg capsule 50 mg PO TID PRN (Reason: allergic reaction) Qty: 20 0RF prednisone 20 mg tablet 20 mg PO DAILY 5 Days Qty: 5 0RF epinephrine [EpiPen 2-Neptali] 0.3 mg/0.3 mL auto-injector 0.3 mg IM Q4H PRN (Reason: anaphylaxis) Qty: 2 0RF No Action pantoprazole 40 mg tablet,delayed release (DR/EC) 40 mg PO DAILY Qty: 90 0RF loratadine 10 mg Tablet 10 mg PO DAILY ondansetron 4 mg tablet,disintegrating 4 mg PO Q6-8H PRN (Reason: nausea and vomiting) Qty: 14 0RF clopidogrel 75 mg tablet 75 mg PO DAILY aspirin 81 mg tablet,delayed release (DR/EC) 81 mg PO DAILY sumatriptan succinate 50 mg tablet PO cyclobenzaprine 10 mg tablet 10 mg PO TID PRN (Reason: muscle spasm) magnesium 250 mg tablet 250 mg PO DAILY nitrofurantoin monohyd/m-cryst [Macrobid] 100 mg capsule 100 mg PO Q12H 5 Days Qty: 10 0RF Rx Instructions: must administer with a meal/food [facility]errals[facility] [Outside] - 1 day Kyra Duggan MD [Primary Care Provider] - 2 days Stand Alone Forms: Work/School Release Print Language: Armenian
[2024-01-20] MEDS: methylPREDNISolone Sod Succ 125 MG/2 ML VIAL IVPUSH (13:01)
[2024-01-20] MEDS: diphenhydrAMINE HCL 50 MG/ML VIAL IVPUSH (13:01)
[2024-01-20 13:02] LABS: MANUAL DIFF FLAG NO
[2024-01-20 13:04] LABS: Basophils Percent Auto 0.7 % (0-2); Eosinophils Percent Auto 0.7 % (0-4); Hematocrit 38.9 % (37.0-47.0); Hemoglobin 13.3 g/dl (12.0-16.0); Imm Gran Abs Auto 0.01 X10*3/uL (0.00-0.03); Imm Gran Pct Auto 0.2 % (0.0-0.4); Lymphocytes Absolute Auto 1.7 X10*3/uL (1.2-4.9); Lymphocytes Percent Auto 30.5 % (20-40); Mean Corpuscular HGB Conc 34.2 g/dl (31.0-35.0); Mean Corpuscular Hemoglobin 31.1 pg (27.0-33.0); Mean Corpuscular Volume 90.9 fL (80.0-98.0); Mean Platelet Volume 9.4 fL (9.4-12.3); Monocytes Absolute Auto 0.4 X10*3/uL (0.1-1.2); Monocytes Percent Auto 7.2 % (2-11); Neutrophils Absolute Auto 3.4 x10*3/uL (2.0-8.3); Neutrophils Percent Auto 60.7 % (45-73); Platelet Count 211 X10*3/uL (160-400); Red Blood Count 4.28 X10*6/uL (4.20-5.50); Red Cell Distribution Width 11.9 % (11.0-16.0); White Blood Count 5.7 X10*3/uL (4.8-10.8)
[2024-01-20 13:09] LABS: INTERNATIONAL NORM RATIO 0.9 (0.9-1.1)
--- NOTE | 2024-01-20 13:10 | PC.NURSE ---
iv inserted, labs drawn, ekg performed, pt medicated per order, call whaley within reach, will continue to monitor
[2024-01-20 13:21] LABS: Alanine Aminotransferase 24 U/L (0-31); Albumin Level 4.4 g/dL (3.5-5.0); Alkaline Phosphatase 70 U/L (39-117); Anion Gap 14 (12-20); Aspartate Amino Transferase 23 U/L (5-31); Bilirubin Total 0.4 mg/dL (0.0-1.0); Blood Urea Nitrogen 24 mg/dL (9-16); Calcium 9.8 mg/dL (8.4-10.2); Carbon Dioxide 22 mmol/L (22-29); Chloride 109 mmol/L (96-108); Creatinine Clr Calc Pharmacy 89.2; Estimated Glomerular Filt Rate > 60; Glucose Random 87 mg/dL (60-115); Magnesium 1.9 mg/dL (1.6-2.6); Potassium 4.2 mmol/L (3.3-5.1); Sodium 141 mmol/L (135-145); Total Protein 7.5 g/dL (6.5-8.0)
[2024-01-20 14:02] LABS: Troponin-I High Sensitivity < 2.7 ng/L (<3.5-17.0)
[2024-01-20 14:38] VITALS: BP 126/79; PULSE 66; RESP 14; O2SAT 96
[2024-01-20 14:41] VITALS: BP 126/79; PULSE 68; RESP 18; TEMP 36.7; O2SAT 95
== END 2024-01-20 14:42 | disposition home or self-care (01) ==
PROVIDERS: Physician Assistant; Emergency Provider Emergency Medicine; PCP Internal Medicine
DX: N39.0 Urinary tract infection, site not specified (principal); R42 Dizziness and giddiness; I49.8 Other specified cardiac arrhythmias; L50.0 Allergic urticaria; Z79.899 Other long term (current) drug therapy; Z51.81 Encounter for therapeutic drug level monitoring; Z98.84 Bariatric surgery status
CPT/HCPCS: 36415; 80053; 83735; 84484; 85025; 85610; 93005; 96374; 96375; 99284; J1200; J2919

== ENCOUNTER → 2024-01-20 12:53 | Outpatient (BNV) | payer OTHER, SELFPAY | PROVIDERS: Emergency Provider Emergency Medicine; PCP Internal Medicine; Visit Provider Internal Medicine | DX: R42 Dizziness and giddiness (principal) | CPT/HCPCS: 93010 ==

== ENCOUNTER 2024-01-25 15:52 | Outpatient (REF) | payer OTHER, SELFPAY | END 2024-01-25 15:53 | disposition home or self-care (01) | LOC: HO.LNP 15:52 | PROVIDERS: Visit Provider Physician Assistant Medical | DX: N30.00 Acute cystitis without hematuria (principal) | CPT/HCPCS: 87086 ==

== ENCOUNTER → 2024-01-25 15:52 | Outpatient (AMB) | payer OTHER, SELFPAY ==
--- NOTE | 2024-01-25 16:14 | MHC.OFFWIV ---
Intake Vital Signs 01/25/24 16:15 Height 5 ft 7 in Weight 192 lb BMI 30.1 BP 116/80 Blood Pressure Location Lt brachial Position Sitting Pulse 81 Pulse Source Pulse Oximeter Temp 98.2 F Temp Source Oral Pulse Oximetry (%) 97 Oxygen Delivery Method Room Air Intake Visit Reasons: possibly uti, cramping, urgency Intake Note: pt here c/o urinary urgency and cramping Patient Tobacco Use Status: Never used Tobacco Allergies nitrofurantoin [From Macrobid] Allergy (Intermediate, Verified 01/25/24 16:15) Rash cephalexin [From Keflex] Allergy (Verified 01/25/24 16:15) Rash sulfamethoxazole [From Bactrim] Allergy (Verified 01/25/24 16:15) Rash trimethoprim [From Bactrim] Allergy (Verified 01/25/24 16:15) Rash Do you need a note to return to daycare/school/sports/work: No HPI HPI Comments History of Present Illness Details 53-year-old female presents today complaining continued symptoms of dysuria and pressure. She was treated for a UTI and had an allergic reaction to Macrobid was seen in the ER who then converted her antibiotic to Levaquin for 5 days. She has finished the Levaquin in his still having symptoms. [facility] Medical History (Updated 01/21/24 @ 00:01 by Nolan Bryson) COVID Brain aneurysm Obesity Surgical History (Updated 01/05/24 @ 14:10 by Carol Nguyen MD) History of sleeve gastrectomy H/O: hysterectomy Social History Alcohol intake: current Alcohol intake frequency: holidays/special occasions only Comment: pt sleeping Patient Tobacco Use Status: Never used Tobacco Advance Directives Date on File: 09/30/20 service: No Review of Systems Const All systems reviewed & are unremarkable except as noted in HPI and below Physical Exam Const General: healthy appearing and no acute distress Results AMB Urinalysis, Automated UA Leukoctes 0 Sakina/uL Last Edit by Adam Ayon CMA on 01/25/24 16:33 UA Nitrite Negative Last Edit by Adam Ayon CMA on 01/25/24 16:33 UA Urobilinogen 0.2 mg/dL Last Edit by Adam Ayon CMA on 01/25/24 16:33 UA Protein 0 mg/dL Last Edit by Adam Ayon, JOS on 01/25/24 16:33 UA pH 6.0 Last Edit by Adam Ayon, JOS on 01/25/24 16:33 UA Blood 0 Ramos/uL Last Edit by Adam Ayon, JOS on 01/25/24 16:33 UA Specific [place] 1.005 Last Edit by Adam Ayon CMA on 01/25/24 16:33 UA Ketone Last Edit by Adam Ayon, JOS on 01/25/24 16:33 UA Bilirubin 0 mg/dL Last Edit by Adam Ayon, JOS on 01/25/24 16:33 UA Glucose 0 mg/dL Last Edit by Adam Ayon CMA on 01/25/24 16:33 Assessment & Plan Assessment & Plan (1) UTI (urinary tract infection): Code(s): N39.0 - Urinary tract infection, site not specified Qualifiers: Urinary tract infection type: acute cystitis Hematuria presence: without hematuria Qualified Code(s): N30.00 - Acute cystitis without hematuria Plan: Antibiotics has been ordered and I culture has been sent Plan See plan Orders: Orders AMB Urinalysis Automated Today Z13.9 - Encounter for screening, unspecified Urine Culture Today N30.00 - Acute cystitis without hematuria Medications: New doxycycline hyclate 100 mg PO BID 7 days 14 caps 0RF Coding Level of Care Code Est Pt Level 3 (91993) Diagnoses Acute cystitis without hematuria N30.00 Urinary tract infection type: acute cystitis Hematuria presence: without hematuria
[2024-01-25 16:15] VITALS: BP 116/80; PULSE 81; TEMP 36.8; O2SAT 97; BMI 30.1
== END ==
PROVIDERS: PCP Internal Medicine; Visit Provider Physician Assistant Medical
DX: Z13.9 Encounter for screening, unspecified (principal); N30.00 Acute cystitis without hematuria
CPT/HCPCS: 81003; 99213

== ENCOUNTER 2024-03-23 08:52 | Outpatient (REF) | payer OTHER, SELFPAY ==
[2024-03-23 13:46] LABS: Influenza A PCR NEGATIVE (Negative); Influenza B PCR NEGATIVE (Negative); Resp Syncy Virus RNA Qual PCR NEGATIVE (Negative); SARS COV2 PCR INHOUSE NEGATIVE (Negative)
== END 2024-03-23 08:53 | disposition home or self-care (01) ==
LOC: HO.HMGCLNP 08:52
PROVIDERS: PCP Internal Medicine; Visit Provider Registered Nurse
DX: J06.9 Acute upper respiratory infection, unspecified (principal); Z13.9 Encounter for screening, unspecified
CPT/HCPCS: 0241U; 87880

== ENCOUNTER 2024-03-23 08:52 | Outpatient (AMB) | payer OTHER, SELFPAY ==
--- NOTE | 2024-03-23 09:44 | AM.OFFWIN_ITS ---
Intake Vital Signs 03/23/24 09:47 Height 5 ft 7 in Weight 199 lb BMI 31.2 BP 122/80 Blood Pressure Location Rt brachial Position Sitting Pulse 77 Pulse Source Pulse Oximeter Temp 98.3 F Temp Source Oral Pulse Oximetry (%) 98 Oxygen Delivery Method Room Air Intake Visit Reasons: EP swollen glands, sore throat Intake Note: Patient here for sore throat, ear pain that started Wednesday night. Patient Tobacco Use Status: Never used Tobacco Allergies nitrofurantoin [From Macrobid] Allergy (Intermediate, Verified 03/23/24 09:48) Rash cephalexin [From Keflex] Allergy (Verified 03/23/24 09:48) Rash sulfamethoxazole [From Bactrim] Allergy (Verified 03/23/24 09:48) Rash trimethoprim [From Bactrim] Allergy (Verified 03/23/24 09:48) Rash Do you need a note to return to daycare/school/sports/work: Yes HPI EP swollen glands, sore throat HPI Details This note is constructed using voice recognition software. While every effort has been made to ensure accuracy, policy writer errors may have been included. The patient is a 53 year old female who presents to the clinic today with sore throat, sinus congestion, and generalized body ache for the past 2 days. She has tried Tylenol to help the pain. She denies cough, shortness of breath, fevers. [facility] [place] Medical History (Updated 01/21/24 @ 00:01 by Nolan Bryson) COVID Brain aneurysm Obesity Surgical History (Updated 01/05/24 @ 14:10 by Carol Nguyen MD) History of sleeve gastrectomy H/O: hysterectomy Social History Alcohol intake: current Alcohol intake frequency: holidays/special occasions only Comment: pt sleeping Patient Tobacco Use Status: Never used Tobacco Advance Directives Date on File: 09/30/20 service: No Review of Systems Const All systems reviewed & are unremarkable except as noted in HPI and below Physical Exam Vital Signs: Last Vital Signs Temp 98.3 F 03/23/24 09:47 Pulse 77 03/23/24 09:47 BP 122/80 03/23/24 09:47 Pulse Ox 98 03/23/24 09:47 Oxygen Delivery Method Room Air 03/23/24 09:47 BMI result Body Mass Index 31.2 Const General: cooperative, healthy appearing, comfortable and no acute distress Orientation/consciousness: patient oriented x3 Limitations: no limitations HEENT Head: Yes normal to inspection Ears: hearing grossly normal bilaterally, external ears normal and TM's normal bilaterally General nose exam: Normal external nose present, Normal nares present and No nasal discharge present Face and sinus: Yes normal facial exam and Yes sinuses nontender Mouth: Normal oral and palatal mucosa present and moist mucous membranes Throat: Yes tonsils normal, Yes uvula midline and Yes posterior oropharynx abnormal (Erythema) Eyes General: appearance normal, both eyes and all related structures Neck Neck: Yes normal visual inspection Resp Effort & Inspection: normal respiratory effort, able to speak in complete sentences, Actively coughing, no respiratory distress, not tachypneic, no tripod positioning and no use of accessory muscles Auscultation: clear to auscultation bilaterally Cardio Jugular venous distension: no JVD Rate: regular rate Rhythm: regular rhythm Heart sounds: S1 normal heart sound present, S2 normal heart sound present, no click, no gallops, no murmurs and no rubs Skin General skin exam: no rashes or lesions noted, elasticity normal and turgor normal Neuro General: patient oriented x3 Extrem General: Yes normal to inspection and Yes no clubbing, cyanosis or edema Results AMB Rapid Strep AMB Rapid Strep Negative Last Edit by LIVIER Brooks on 03/23/24 10:21 Assessment & Plan Assessment & Plan (1) URI (upper respiratory infection): Code(s): J06.9 - Acute upper respiratory infection, unspecified Qualifiers: URI type: unspecified URI Qualified Code(s): J06.9 - Acute upper respiratory infection, unspecified Plan: Rapid strep negative. Viral swab obtained to rule out Covid based on symptoms. Advised mask wearing while symptomatic and quarantine per current CDC guidel jere. Reviewed at home support methods including hydration, humidification, vix vapor rub, sinus rinse. Discussed treatment with antiviral therapy for covid with paxlovid including appropriate use and side effects, and need to start medication within 5 day of symptom onset, preferably within 48 hours of symptom onset. Patient wishes to decline paxlovid. Advised follow up with worsening symptoms such as dyspnea at rest, which would require emergent evaluation. Plan See above for full details and plan. Orders: Orders AMB Rapid Strep Screen Today Z13.9 - Encounter for screening, unspecified SARS-CoV2/FLU/RSV Today J06.9 - Acute upper respiratory infection, unspecified Coding Level of Care Code Est Pt Level 3 (59998) Diagnoses Upper respiratory tract infection, unspecified type J06.9 URI type: unspecified URI
[2024-03-23 09:47] VITALS: BP 122/80; PULSE 77; TEMP 36.8; O2SAT 98; BMI 31.2
== END 2024-03-23 10:45 | disposition home or self-care (01) ==
PROVIDERS: PCP Internal Medicine; Visit Provider Registered Nurse
DX: Z13.9 Encounter for screening, unspecified (principal); J06.9 Acute upper respiratory infection, unspecified